=== PATIENT | male | born 1960 | race Caucasian/White ===

== ENCOUNTER 2017-05-21 06:04 | Inpatient (IN) | payer BC, OTHER ==
[2017-04-29 11:15] VITALS: BMI 31.0
--- NOTE | 2017-04-29 11:41 | PAT Medication Instructions ---
Service Date Apr 29, 2017. Current Home Medication List Hydrochlorothiazide (Hctz), 12.5 MG PO QAM Levothyroxine Sodium (Levothyroxine Sodium), 1 TAB PO QAM Losartan Potassium (Cozaar), 100 MG PO QAM Zolpidem Tartrate (Zolpidem Tartrate), 1 TAB PO HS PRN for Insomnia Medication Instructions For Your Scheduled Surgery - Hold the following medications the morning of surgery: Hydrochlorothiazide (Hctz), 12.5 MG PO QAM Losartan Potassium (Cozaar), 100 MG PO QAM - Take the following medications the morning of surgery with a sip of water: Levothyroxine Sodium (Levothyroxine Sodium), 1 TAB PO QAM - Take the following medications as scheduled the night before surgery: Zolpidem Tartrate (Zolpidem Tartrate), 1 TAB PO HS PRN for Insomnia (if needed) If you have any questions please call us at [phone] or [phone] or [phone]
--- NOTE | 2017-04-29 12:23 | DIAGNOSTIC IMAGING REPORT ---
CHEST 2 VIEWS ROUTINE CLINICAL HISTORY: Preoperative chest COMPARISON STUDY: 12/25/2012 FINDINGS: The cardiac and mediastinal contours are normal. There is no evidence of focal pulmonary consolidation. There is no evidence of failure. No pleural effusions are visualized.[ IMPRESSION: No active disease in the chest. Electronically signed by: Maximiliano Muñoz M.D. 04/29/2017 12:22 PM Dictated Date/Time: 04/29/2017 12:22 PM
[2017-04-29 12:53] LABS: BASO % 0.3 %; BASO ABS # 0.03 K/uL (0-0.2); EOS % 2.3 %; EOS ABS # 0.21 K/uL (0-0.5); HEMATOCRIT 41.6 % (42-52); HEMOGLOBIN 14.4 g/dL (14.0-18.0); IG# 0.03 K/uL (0.00-0.02); LYMPH % 31.6 %; LYMPH ABS # 2.86 K/uL (1.2-3.4); MEAN CORPUSCULAR HEMOGLOBIN 29.1 pg (25-34); MEAN CORPUSCULAR HGB CONC 34.6 g/dl (32-36); MEAN PLATELET VOLUME 9.6 fL (7.4-10.4); MONO ABS # 1.09 K/uL (0.11-0.59); NEUT % 53.5 %; NEUT ABS # 4.83 K/uL (1.4-6.5); PLATELET COUNT 245 K/uL (130-400); RED CELL DISTRIBUTION WIDTH SD 39.2 fL (36.4-46.3); WHITE BLOOD COUNT 9.05 K/uL (4.8-10.8)
[2017-04-29 13:06] LABS: PTT PATIENT 25.9 SECONDS (21.0-31.0)
[2017-04-29 13:38] LABS: ALBUMIN 3.8 gm/dl (3.4-5.0); CALCIUM 9.4 mg/dl (8.5-10.1); CREATININE 1.04 mg/dl (0.60-1.40); POTASSIUM 4.4 mmol/L (3.5-5.1)
[2017-04-29 13:39] LABS: HEMOGLOBIN A1C 6.3 % (4.5-5.6)
[2017-05-21] VITALS (10 sets, daily range): BP systolic 110–129; BP diastolic 63–90; PULSE 73–82; TEMP 36.4–36.8; O2SAT 93–96; Ht 182.9 cm; Wt 103.9 kg
[~2017-05-21] VITALS: Ht 182.9 cm; Wt 103.9 kg
[~2017-05-21 06:04] MED LIST: ACETAMINOPHEN 500 MG TAB PO SCH; CEFAZOLIN 2000MG IV PUSH 15 ML IV SCH; CeleBREX 200 MG CAP PO SCH; DEXAMETHASONE 4 MG TAB PO SCH; FAMOTIDINE 20 MG TAB PO SCH; GABAPENTIN 600 MG PO SCH; HYDR25TA4 PO; LACTATED RINGER'S 1000ML 1,000 ML IV SCH; LACTATED RINGER'S 1000ML 500 ML IV SCH; LEVO150T9 PO; LOSA1TAB38 PO; METOCLOPRAMIDE HCL 10 MG TAB PO SCH; ROPIVACAINE 5MG/ML 30 ML 150 MG, BUPIVACAINE 0.5% MPF INJ 30 ML, EpINEphrine HCL INJ 0.... INFIL SCH; ZOLP10TA6 PO
[2017-05-21] MEDS ORDERED: BUPIVACAINE 0.5 % 5 MG/1 ML PF 10ML VIAL ONE (06:31)
[2017-05-21] MEDS ORDERED: BUPIVACAINE 0.25% 30 ML VIAL ONE (06:31)
--- NOTE | 2017-05-21 06:58 | History & Physical Bridge Note ---
H&P Re-Evaluation Bridge Note: I have examined the patient, reviewed the History & Physical and in the interval since the performance of the History & Physical I have noted the following changes of clinical significance: No changes noted
--- NOTE | 2017-05-21 07:01 | History and Physical ---
History & Physical Date May 21, 2017. Chief Complaint Patient presents as a 57-year-old white male with complaints of severe end- stage DJD about his left knee is undergone previous right total knee arthroplasty he has [id number]-[id number] changes subchondral sclerosis osteophytes marginal osteophytes varus alignment of his left knee he is a failed attempt to conservative management with her today to present to proceed forward with left total knee arthroplasty after failing all attempts at conservative management. History of Present Illness The patient is a 57 year old male with complaints of Additional History Hepatic Disease: No Endocrine Disorder: No Kidney Disease: No Hypertension: Yes Heart Disease: No Bleeding Tendencies: No Infectious Diseases: No Allergies Coded Allergies: No Known Allergies (Unverified , 05/21/17) Home Medications Scheduled Hydrochlorothiazide (Hctz), 12.5 MG PO QAM Levothyroxine Sodium (Levothyroxine Sodium), 1 TAB PO QAM Losartan Potassium (Cozaar), 100 MG PO QAM Scheduled PRN Zolpidem Tartrate (Zolpidem Tartrate), 1 TAB PO HS PRN for Insomnia Physical Examination Skin: warm/dry, no rash Eyes: normal inspection, EOMI, sclerae normal ENT: normal ENT inspection, pharynx normal Head: normocephalic, atraumatic Neck: supple, no adenopathy, trachea midline Respiratory/Chest: lungs clear, normal breath sounds, no respiratory distress Cardiovascular: regular rate, rhythm, no edema, no murmur Abdomen / GI: normal bowel sounds, non tender Back: normal inspection Extremities: normal inspection, normal range of motion Neurologic/Psych: no motor/sensory deficits, alert, normal reflexes, oriented x 3 Diagnosis Severe end-stage chronic or mild degenerative joint disease marginal ossified subchondral sclerosis subchondral cystic changes varus alignment no response to conservative therapy Plan of Treatment Plan for total knee arthroplasty postop pain management DVT prophylaxis and boxes necessary
[2017-05-21] MEDS ORDERED: POVIDONE-IODINE OP SOLN 30 ML BTL ONE (07:24)
[2017-05-21] MEDS ORDERED: ORTHO JOINT ANESTHETIC ONE (07:24)
[2017-05-21] MEDS ORDERED: BACITRACIN 50000 UNIT VIAL ONE (07:24)
[2017-05-21] MEDS ORDERED: EpHEDrine SULFATE INJ 50 MG/ML AMP IV PRN (07:30)
[2017-05-21] MEDS ORDERED: ONDANSETRON INJ 2 MG/ML 2 ML VIAL IV PRN ×2 (07:30→10:00)
[2017-05-21] MEDS ORDERED: ATROPINE SULFATE 0.1 MG/ML 5ML SYR IV PRN (07:30)
[2017-05-21] MEDS ORDERED: FENTANYL CITRATE INJ 50 MCG/1 ML 2 ML VIAL IV PRN (07:30)
[2017-05-21] MEDS ORDERED: MIDAZOLAM HCL 1 MG/ML 2ML VIAL ONE (07:40)
[2017-05-21] MEDS ORDERED: FENTANYL CITRATE INJ 50 MCG/1 ML 2 ML VIAL ONE ×2 (07:40→09:08)
[2017-05-21] MEDS: TRANEXAMIC ACID INJ 1,000 MG x 2 Bags IV SCH ×4 (07:49→22:56)
[2017-05-21] MEDS ORDERED: PROPOFOL IV EMULSION 10 MG/ML 20 ML VIAL IV ONE ×2 (08:55→09:23)
[2017-05-21] MEDS ORDERED: ONDANSETRON INJ 2 MG/ML 2 ML VIAL ONE (08:56)
[2017-05-21] MEDS ORDERED: GLYCOPYRROLATE INJ 0.2 MG/ML VIAL ONE (08:56)
[2017-05-21] MEDS ORDERED: EpHEDrine SULFATE 50MG/5ML SYR ONE (08:56)
[2017-05-21] MEDS ORDERED: PHENYLEPHRINE 100MCG/ML 5ML SYR ONE (08:56)
--- NOTE | 2017-05-21 09:26 | [facility] Post Operative Brief Note ---
Immediate Operative Summary Operative Date May 21, 2017. Pre-Operative Diagnosis Severe end-stage chronic or mild degenerative joint disease marginal ossified subchondral sclerosis subchondral cystic changes varus alignment no response to conservative therapy Post-Operative Diagnosis Same Procedure(s) Performed Left Total Knee Arthroplasty utilizing [employer] journey to patient match size 6 femur 6 tibia 9 probably [address] Greg Reid Business Services Analyst Surgeon(s) Juan Humphrey PA-C Estimated Blood Loss 5mL Findings Consistent with Post-Op Diagnosis Specimens Permanent: A. Left Knee Bone and Tissue Anesthesia Type MAC Spinal Regional Complication(s) none Disposition Disposition: Recovery Room / PACU
--- NOTE | 2017-05-21 09:28 | [facility] Operative Report ---
Operative Report Operative Date May 21, 2017. Pre-Operative Diagnosis Severe end-stage chronic or mild degenerative joint disease marginal ossified subchondral sclerosis subchondral cystic changes varus alignment no response to conservative therapy Post-Operative Diagnosis Same Procedure(s) Performed Left Total Knee Arthroplasty utilizing [employer] journey to patient match size 6 femur 6 tibia 9 probably [address] Greg Reid Software Computer Specialist Surgeon(s) Juan Humphrey PA-C Estimated Blood Loss 5mL Findings Severe end-stage tricompartmental degenerative joint disease no response to conservative therapy including physical therapy anti-inflammatories relative rest activity modification Visco supplementation corticosteroid injections patient has x-ray findings consistent with subchondral sclerosis marginal osteophytes and subchondral cystic changes with varus alignment on the bone changes Specimens Permanent: A. Left Knee Bone and Tissue Anesthesia Type MAC Spinal Regional Complication(s) none Disposition Recovery Room / PACU Indications Patient presents with severe end-stage drug or mild degenerative joint disease with knee is been no response to conservative management and physical therapy was consolidations course of steroid injections bracing rest activity modification patient presents for total neuroplasty time surgery patient has evidence of varus alignment [id number]-[id number] changes subchondral cystic changes large marginal osteophytes and bodies subchondral cystic changes and sclerosis Description of Procedure After proper prepping and draping of the left lower extremity anterior midline incision was made over the region of the extensor extensor mechanism after meticulous hemostasis was obtained and maintained in subcutaneous tissues a medial parapatellar incision was made The patella was subluxed lateralward the medial lateral gutter were cleaned from any hypertrophic synovitis and scar tissue of the distal femoral block was placed and the distal femoral osteotomy cut was made subsequently the chamfers anterior and posterior osteotomy cuts were made utilizing the 4-in-1 block the tibia was subsequently subluxed anteriorward medial and ateral meniscal remnants were excised in their entirety remnants of the anterior and posterior cruciate ligaments were excised in their entirety excellent exposure of the proximal tibia was obtained the tibial osteotomy guide was placed on the proximal tibial osteotomy cut was made once again the knee was irrigated with copious amounts of sterile saline solution the patella was subsequently everted lateralward thickened scar tissue around the patella was removed the patella was subsequently cut utilizing a freehand technique and was drilled prepared for final preparation and placement of patella socially flexion-extension gaps were checked and the equal and symmetric trials were placed to the appropriate femoral and tibial trials with poly-spacer being placed for equal flexion and extension gaps and full range of motion including extension to 0 and flexion to 140 the trial components after having been taken to recovery range of motion was subsequently removed meticulous hemostasis was obtained and maintained subsequently a knee block injection of joint cocktail including ropivacaine 0.5% 150 mg. Bupivacaine 0.5 % epinephrine 1-200,030 mL's toradol 30 mg dexamethasone 4 mg ketamine 10 mg clonidine 100 micrograms normal saline solution 30 mg was infiltrated into the soft tissues of the posterior knee medial lateral gutters and periosteal synovium special attention was paid to protect neurovascular structures at all times subsequently trial components having been removed the knee was irrigated with sterile saline solution. debris was removed the proximal tibia was subsequently prepared and was made ready for the placement of the tibial component tibial component was also cemented and tamped into position the femoral component was subsequently placed and cemented in the position the patellar component was subsequently cemented in position because hemostasis once again obtained and maintained wound having been thoroughly irrigated with debridement and debridement lavage was performed as well as a medial parapatellar incision closed with #1 Vicryl in interrupted fashion subcutaneous was closed with #2 Vicryl skin was closed with skin clips. PA-C was necessary for prepping and drapping as well as wound closure of deep fascia Sub cutaneous tissue and skin and was necessary for the case. A sterile compressive dressing was placed patient was taken to recovery in stable condition of report dictated by Franklin I attest to the content of the Intraoperative Record and any orders documented therein. Any exceptions are noted below. I attest to the content of the Intraoperative Record and any orders documented therein. Any exceptions are noted below.
[2017-05-21] MEDS ORDERED: ALUMINUM/MAGNESIUM/SIMETH (MAALOX MAX) 30 ML UDC PO PRN (10:00)
[2017-05-21] MEDS ORDERED: MoRPHine SULFATE 4 MG/ML 1 ML CARP\\VIAL IV PRN (10:00)
[2017-05-21] MEDS ORDERED: MAGNESIUM HYDROXIDE SUSP 30 ML UDC PO PRN (10:00)
--- NOTE | 2017-05-21 10:18 | DIAGNOSTIC IMAGING REPORT ---
L KNEE 1 OR 2 VIEWS ROUTINE CLINICAL HISTORY: AP/LATERAL IN PACU LEFT KNEE knee replacement COMPARISON: None. DISCUSSION: Anatomic alignment posttotal left knee arthroplasty. Good contact between prosthetic and underlying bone. Surgical drains are in position. Expected postoperative soft tissue change. IMPRESSION: Anatomic alignment posttotal left knee arthroplasty. The above report was generated using voice recognition software. It may contain grammatical, syntax or spelling errors. Electronically signed by: Eulogio Moura M.D. 05/21/2017 10:17 AM Dictated Date/Time: 05/21/2017 10:15 AM
--- NOTE | 2017-05-21 10:32 | Anesthesiology Progress Note ---
Anesthesia Post Op Note Date & Time May 21, 2017 at 10:32 Vital Signs Pain Intensity: 0 Vital Signs Past 12 Hours Date Time Temp Pulse Resp B/P (MAP) Pulse Ox O2 Delivery O2 Flow Rate FiO2 05/21/17 10:20 36.6 92 19 129/83 94 Nasal Cannula 2 05/21/17 10:10 90 15 111/78 95 Nasal Cannula 2 05/21/17 10:00 94 18 134/69 100 Oxymask 10 05/21/17 09:54 37.5 108 16 112/64 96 Oxymask 10 05/21/17 06:37 36.7 82 20 129/90 94 Room Air Notes Mental Status: alert / awake / arousable, participated in evaluation Pt Amnestic to Procedure: Yes Nausea / Vomiting: adequately controlled Pain: adequately controlled Airway Patency, RR, SpO2: stable & adequate BP & HR: stable & adequate Hydration State: stable & adequate Neuraxial Anesthesia: was administered, sensory block is resolving Anesthetic Complications: no major complications apparent
[2017-05-21] MEDS: D5W AND 1/2NSS + 20MEQ KCL 1,000 ML IV SCH ×2 (12:12→23:36)
[2017-05-21] MEDS: ACETAMINOPHEN 500 MG TAB PO SCH ×2 (13:44→21:26)
[2017-05-21] MEDS: CEFAZOLIN IV 2,000 MG in SYRINGE 0 ML IV SCH ×2 (15:49→23:35)
[2017-05-21] MEDS: OXYCODONE HCL IR 5 MG TAB (IMMEDIATE RELEASE) PO PRN ×2 (15:58→21:25)
[2017-05-21] MEDS ORDERED: SENNA 8.6 MG TAB PO SCH (21:00)
[2017-05-21] MEDS: CeleBREX 200 MG CAP PO SCH (21:26)
[2017-05-21] MEDS: ASPIRIN 81 MG ECTAB PO SCH (21:26)
[2017-05-21] MEDS: DOCUSATE SODIUM 100 MG CAP PO SCH (21:26)
[2017-05-21] MEDS: TRAMADOL HCL 50 MG TAB PO PRN (23:35)
[2017-05-22 02:55] VITALS: BP 116/64; PULSE 79; TEMP 36.9; O2SAT 96
[2017-05-22] MEDS: OXYCODONE HCL IR 5 MG TAB (IMMEDIATE RELEASE) PO PRN ×3 (03:00→13:37)
[2017-05-22 05:58] LABS: HEMATOCRIT 35.8 % (42-52); MEAN CORPUSCULAR HEMOGLOBIN 28.5 pg (25-34); MEAN CORPUSCULAR HGB CONC 33.5 g/dl (32-36); MEAN PLATELET VOLUME 9.5 fL (7.4-10.4); PLATELET COUNT 242 K/uL (130-400); RED CELL DISTRIBUTION WIDTH CV 13.2 % (11.5-14.5); RED CELL DISTRIBUTION WIDTH SD 40.8 fL (36.4-46.3); WHITE BLOOD COUNT 26.96 K/uL (4.8-10.8)
[2017-05-22] MEDS: ACETAMINOPHEN 500 MG TAB PO SCH ×2 (05:58→13:37)
[2017-05-22] MEDS: TRAMADOL HCL 50 MG TAB PO PRN (05:58)
[2017-05-22] MEDS ORDERED: LEVOTHYROXINE 150 MCG TAB PO SCH (06:00)
[2017-05-22 06:24] LABS: CALCIUM 8.2 mg/dl (8.5-10.1); CREATININE 1.1 mg/dl (0.60-1.40); POTASSIUM 4.3 mmol/L (3.5-5.1)
[2017-05-22] MEDS: D5W AND 1/2NSS + 20MEQ KCL 1,000 ML IV SCH (07:15)
[2017-05-22 07:41] VITALS: BP 128/75; PULSE 62; TEMP 36.8; O2SAT 95
--- NOTE | 2017-05-22 08:04 | Orthopedic Progress Note ---
Orthopedic Progress Note Date of Service May 22, 2017. Subjective Post OP Day: 1 Reports: feeling well, pain controlled w PO medications, Denies: complaints, chest pain, SOB, nausea / vomiting, light headedness, calf pain Objective calves soft nontender, N/V intact, capillary refill less than 2 sec., dressing C /D/I, A&O x3, toes mobile, hemovac drainage (300cc/8 hours) Date Time Temp Pulse Resp B/P (MAP) Pulse Ox O2 Delivery O2 Flow Rate FiO2 05/22/17 02:55 36.9 79 16 116/64 (81) 96 Room Air 05/21/17 23:58 36.8 75 16 115/68 (84) 96 Room Air 05/21/17 23:40 Room Air 05/21/17 15:47 36.4 74 18 113/63 (80) 94 Room Air 05/21/17 15:30 94 Room Air 05/21/17 13:38 73 16 117/72 (87) 94 Nasal Cannula 2.0 05/21/17 12:40 36.4 74 16 117/72 (87) 95 Nasal Cannula 2.0 05/21/17 11:48 73 19 110/69 (83) 96 Nasal Cannula 2.0 05/21/17 11:10 36.4 73 16 116/73 (87) 93 Nasal Cannula 2.0 05/21/17 10:59 96 Nasal Cannula 2.0 05/21/17 10:40 36.8 76 16 118/73 (88) 96 Nasal Cannula 2.0 05/21/17 10:40 96 Nasal Cannula 2.0 05/21/17 10:20 36.6 92 19 129/83 94 Nasal Cannula 2 05/21/17 10:10 90 15 111/78 95 Nasal Cannula 2 05/21/17 10:00 94 18 134/69 100 Oxymask 10 05/21/17 09:54 37.5 108 16 112/64 96 Oxymask 10 Laboratory Results 24 Hours: Test 05/22/17 05:49 Hematocrit 35.8 % Hemoglobin 12.0 g/dL Assessment & Plan Assessment: POD #1 s/p left TKA pt/ot dvt proph with naldo/scd/asa plan for dc home later today, will check drain output, will either pull today or arrange appt in [place] office tomorrow to have drain pulled. Discharge Planning Discharge Planning: home with oppt DVT Prophylaxis: TEDs, SCDs, ASA
[2017-05-22] MEDS ORDERED: ASPEC81 PO (08:05)
[2017-05-22] MEDS ORDERED: ACET-24 PO (08:05)
[2017-05-22] MEDS ORDERED: ONDA-170 PO (08:06)
[2017-05-22] MEDS ORDERED: CLC100 PO (08:06)
[2017-05-22] MEDS ORDERED: CLB200 PO (08:06)
[2017-05-22] MEDS ORDERED: RXC5 PO (08:06)
--- NOTE | 2017-05-22 08:07 | Discharge Instructions ---
Discharge Instructions Date of Service May 22, 2017. Admission Reason for Admission: Left Knee Osteoarthritis Discharge Discharge Diagnosis / Problem: left total knee replacement Discharge Goals Goal(s): Decrease discomfort, Improve function, Increase independence Activity Recommendations Activity Limitations: as noted below Weightbearing Status: Left weightbearing (as tolerated) . Instructions / Follow-Up Instructions / Follow-Up ACTIVITY RECOMMENDATIONS: SELF CARE INSTRUCTIONS AFTER TOTAL KNEE REPLACEMENT A. You may need to continue a physical therapy program after discharge from the hospital. There are several options available to you. Your doctor will assist you in selecting the best one for you. 1. An out-patient facility 2 to 3 times a week for therapy or home therapy. 2. Continue working on all exercises taught to you in the hospital. Your goals should be to increase bending of your knee to 90 degrees and beyond and to fully straighten your knee. B. You may progress at your own pace from walking with a walker or crutches to a cane; then to no assistive devices. C. Make walking a part of your daily routine. Be up as much as comfortable with rest periods throughout the day. Rest with leg elevation is very important. Use the ice wrap frequently for the first 3-4 weeks. D. There are no restrictions on activities. You may ride in a car, shop, participate in planing machine operator and all social activities. E. Wear the long elastic stockings (WILFRED hose) 20 hours a day for 2 weeks after surgery. They can be removed several times a day for laundering and for a bath. F. You may shower, no tub baths until cleared by your doctor. SPECIAL CARE INSTRUCTIONS: VERY IMPORTANT TO READ AND REVIEW A. There are a few signs you need to watch for after you are home. Call [facility] if you notice any of the followin. Increased severe knee pain. Some pain is expected especially when you exercise. 2. Increased swelling in your leg or knee; pain or swelling of the calf muscle in either lower leg. 3. Any fluid drainage from the incision. 4. Shortness of breath or chest pain. B. Please call [facility] at if you have any concerns or questions about your operation or recovery. The doctor or his nurse will return your call promptly. C. You must take antibiotics before dental work, bladder, bowel or other surgery. Your doctor will provide you with a permanent care to carry describing this precaution. IMPORTANT: * REMEMBER TO TAKE ASPIRIN, 81 MG, TWICE DAILY FOR 4 WEEKS UNLESS OTHERWISE DIRECTED. THIS IS YOUR BLOOD THINNER. * HIGH RISK PATIENTS MAY BE PRESCRIBED A STRONGER BLOOD THINNER. THIS WILL BE PROVIDED AT DISCHARGE. * CALL IF INCREASED PAIN, REDNESS, DRAINAGE OR FEVER GREATER THAT 101. * WEAR WILFRED HOSE 20 HOURS PER DAY FOR 2 WEEKS. * YOU MAY HAVE A LARGE BAND-AID LIKE DRESSING (SILVERON). THIS WILL REMAIN ON YOUR INCISION FOR 7 DAYS, THEN CAN BE REMOVED. IF INCISION IS LEAKING THROUGH DRESSING, CALL THE OFFICE . DERMABOND Prineo- This is a mesh tape dressing that is covered with glue. It should remain in place until the incision is properly healed, usually 10-14 days. This dressing is designed to naturally slough off. You may trim the excess mesh tape as it peels off. Incision may be briefly wet in a shower. Dry immediately by blotting with a clean, dry towel. Do not bath or swim until instructed by your doctor. Do not scratch, rub, or pick at the dressing. Do not apply any topical ointments or lotions until dressing is completely removed and/or instructed by your doctor. There may be a small piece of suture material at one end of your incision. Do not pull or trim this. If it is bothersome or catching on clothing, you may cover it with a band-aid. FOLLOW UP VISIT: If appointment is not already scheduled: Please call [facility] to make a follow-up appointment for 2 weeks after your surgery at . Current Hospital Diet Patient's current hospital diet: Regular Diet Discharge Diet Recommended Diet: Regular Diet Procedures Procedures Performed: Left Total Knee Arthroplasty utilizing [employer] journey to patient match size 6 femur 6 tibia 9 probably 38 oval patella Pending Studies Studies pending at discharge: no Laboratory Results Hemoglobin A1c Test 04/29/17 11:56 Range/Units Estimated Average Glucose 134 mg/dl Hemoglobin A1c 6.3 H 4.5-5.6 % Medical Emergencies . Who to Call and When: Medical Emergencies: If at any time you feel your situation is an emergency, please call 911 immediately. . Non-Emergent Contact Non-Emergency issues call your: Primary Care Provider, Surgeon . "Provider Documentation" section prepared by Eulogio Meyer. . [facility] Monitoring Program Search Results: patient reviewed within database, no issues identified
[2017-05-22] MEDS ORDERED: LOSARTAN POTASSIUM 50 MG TAB PO SCH (09:00)
[2017-05-22] MEDS ORDERED: MULTIVITAMIN TAB PO SCH (09:00)
[2017-05-22] MEDS: DOCUSATE SODIUM 100 MG CAP PO SCH (09:07)
[2017-05-22] MEDS: CeleBREX 200 MG CAP PO SCH (09:07)
[2017-05-22] MEDS: ASPIRIN 81 MG ECTAB PO SCH (09:07)
[2017-05-22 10:39] VITALS: BP 128/75; PULSE 62; TEMP 36.8; O2SAT 95
--- NOTE | 2017-05-23 14:45 | DISCHARGE SUMMARY ---
DISCHARGE DIAGNOSIS: Degenerative joint disease, left knee. SECONDARY DIAGNOSES: Hypertension, hypothyroidism. CONSULTS: None. COMPLICATIONS: None. PROCEDURE: Left total knee arthroplasty performed by Dr. Reid on 05/21/2017. BRIEF HISTORY: As dictated in history and physical. HOSPITAL SUMMARY: The patient was admitted on the above-noted date and had the above-noted surgery performed, which he tolerated well. On first postoperative day, he was feeling well and pain was controlled. He had no complaints. Calves were soft, nontender. Neurovascularly intact. Capillary refill was less than 2 seconds. Dressings clean, dry and intact. Toes were mobile. Vital signs were stable. He was afebrile and hemoglobin was 12.0. The patient was started on physical therapy protocol and continued on DVT prophylaxis and pain management. He was progressing very well with his physical therapy. He continued to remain stable with his vital signs and plans were for him to be discharged to home on 05/22/2017. If drain remains in, patient will be scheduled to see someone on 05/23/2017 at the office in [place] to have the drain removed. For further review, please see chart. LABORATORY AND X-RAY DATA: As per chart. DISCHARGE INSTRUCTIONS: The patient was discharged home in satisfactory condition on 05/22/2017. DIET: Regular. ACTIVITY: Weightbearing as tolerated, left lower extremity. Follow TKA instruction sheets and special care instructions as noted. Follow up with Dr. Reid in 10-14 days. The patient to call for appointment if one has not been made for you. DISCHARGE MEDICATIONS: Acetaminophen 1000 mg p.o. q. 8 hours, aspirin 81 mg p.o. b.i.d., Celebrex 200 mg p.o. b.i.d., Colace 100 mg p.o. b.i.d., Zofran 8 mg p.o. q. 8 hours p.r.n. nausea, oxycodone 5-10 mg p.o. q. 4 hours p.r.n. Resume home meds as listed.
== END 2017-05-22 14:10 | disposition home or self-care (01) | DRG 470 ==
LOC: C.ACU 06:04 → C.3E 06:40 → ENRESERV 10:17
PROVIDERS: ADMIT Orthopaedic Surgery; ATTEND Orthopaedic Surgery
PROC: 0SRD0J9 Replacement of Left Knee Joint with Synthetic Substitute, Cemented, Open Approach (ICD-10-PCS; principal; 2017-05-21 08:15)
DX: M17.12 Unilateral primary osteoarthritis, left knee (principal); I10 Essential (primary) hypertension; E03.9 Hypothyroidism, unspecified; Z79.899 Other long term (current) drug therapy; Z96.651 Presence of right artificial knee joint; Z85.46 Personal history of malignant neoplasm of prostate; Z90.79 Acquired absence of other genital organ(s); Z98.890 Other specified postprocedural states

== ENCOUNTER 2021-07-08 17:49 | Inpatient (IN) ==
--- NOTE | 2021-07-08 18:17 | Emergency Department Note ---
History of Present Illness General Chief complaint: Back Injury/Pain Stated complaint: BACK PAIN IS WORSE SINCE LAST VISIT Time Seen by Provider: 07/08/21 18:03 Source: patient History of Present Illness Provider complaint: Back pain Onset (ago): week(s) Location: back and right Radiation: extremity Pain Consistency: + intermittent Maximum Pain Intensity: 8 Quality: + sharp Exacerbated By: + movement Associated symptoms: no chest pain, no cough, no fever/chills, no nausea/vomiting, no shortness of breath or no weakness This is a 61-year-old male with recently diagnosed lumbar radiculopathy presenting with continued pain to his back rating down his right leg. He de scribes it as sharp. He states he feels fine when he sitting on the bed but if he tries to move around it hurts quite a bit. He states the pain has not improved with the medications that he was given such as prednisone and are oxycodone. He does have some mild relief with hydrocodone. He has had his pain for over a week after playing golf. He also noticed at that time that he has had numbness to the top of his right foot which has not changed at all. He describes it as a pins and needle sensation like the foot is asleep. He has had no fecal urinary incontinence. He denies any saddle anesthesia. He denies any recent injury. He denies fever, cough or cold symptoms, chest pain, shortness of breath, abdominal pain, vomiting, diarrhea or urinary symptoms. He states that he was told by Dr. Cancino that if his symptoms did not improve he should come to the emergency department and the staff would get a hold of Dr. Cancino. Home Medications Medication Instructions Recorded Confirmed Type baclofen 10 mg tablet 10 mg PO TID PRN 07/04/21 07/04/21 History carvedilol 3.125 mg tablet 3.125 mg PO BID 07/04/21 07/04/21 History evolocumab 140 mg/mL subcutaneous 140 mg SUBCUT MONTHLY 07/04/21 07/04/21 History pen injector (Vladislav Wright) gabapentin 300 mg capsule 300 mg PO BID #20 cap 07/04/21 Rx irbesartan 300 1 tab PO DAILY 07/04/21 07/04/21 History mg-hydrochlorothiazide 12.5 mg tablet levothyroxine 200 mcg tablet 200 mcg PO QAM 07/04/21 07/04/21 History oxycodone 5 mg tablet 5 mg PO Q8H PRN #14 tab 07/04/21 Rx prednisone 20 mg tablet 0 mg PO DAILY 07/04/21 07/04/21 History zolpidem 10 mg tablet 10 mg PO HS 07/04/21 07/04/21 History Allergies Allergy/AdvReac Type Severity Reaction Status Date / Time No Known Allergies Allergy Verified 07/04/21 16:09 Past Med/Surg History Medical History (Updated 07/08/21 @ 18:39 by Greg George MD) Hypertension Hypothyroidism Lumbar radiculopathy Social History Smoking Status: Never smoker Preferred Language: [place] Feels Safe at Home: Yes Review of Systems See HPI for pertinent positives & negatives. and A total of 10 systems reviewed and were otherwise negative Physical Exam Vital Signs Vital Signs - 24 hr 07/08/21 17:51 07/08/21 18:30 Temperature 36.1 C L Temperature Source Temporal Artery Scan Pulse Rate 67 Pulse Rate [Left Radial] 59 L Pulse Rhythm [Left Radial] Regular Respiratory Rate 16 20 Respiratory Effort / Characteristics Non-Labored Non-Labored Respiratory Depth Normal Normal Blood Pressure [Left Radial Artery] 142/81 H Blood Pressure Mean [Left Radial Artery] 101 Blood Pressure Position [Left Radial Artery] Lying Pulse Oximetry 97 98 Oxygen Delivery Method Room Air Room Air Sepsis Recent Fever Within 48 Hours No Sepsis New/Unexplained Change in Mental Status No Sepsis Action Taken by Nursing No Action Required Constitutional: Vital signs reviewed. Eyes: Pupils are equal round reactive to light. Conjunctiva are noninjected. ENT: Pharynx is clear without erythema or exudate. Mucous membranes are moist. Neck supple without meningeal signs. Respiratory: Clear to auscultation bilaterally. Breath sounds are equal bilaterally. Cardiovascular: Regular rate and rhythm. No rubs or gallops. GI: Soft, nondistended and nontender. Bowel sounds are present. Musculoskeletal: No peripheral edema. No lower extremity tenderness. Mild midline tenderness to lower lumbar spine without step-off or deformity. Negative straight leg raise bilaterally. Normal distal pulses in the feet. Integumentary: No cyanosis. or jaundice. Neurological: The patient is awake and alert. Motor is intact throughout the lower extremities bilaterally with 5 out of 5 strength except for dorsiflexion of the right foot which is 4 out of 5. Sensation is intact to light touch throughout the lower extremities bilaterally with dysesthesia to the lateral aspect of the lower leg and dorsum of the foot. Psychiatric: Normal affect. Not anxious appearing. Medical Decision Making Medical Records Attestation: I reviewed the patient's medical records. I did perform a limited focused review of portions of the patient's old chart on the electronic medical record. The patient was seen here for identical symptoms on July 04 and had an MRI of his back which showed the following: MRI OF THE LUMBAR SPINE WITHOUT IV CONTRAST CLINICAL HISTORY: Low back pain. Difficulty with ambulation. COMPARISON STUDY: No priors. TECHNIQUE: MRI of the lumbar spine is performed utilizing various T1 and T2-weighted sequences in the axial and sagittal planes. IV contrast was not administered for this examination. The examination is modestly degraded by motion artifact. FINDINGS: Lumbar spine: Vertebral body height and alignment are maintained throughout the lumbar spine. There is straightening of the lumbar lordosis. Anterior and lateral marginal osteophytes are seen throughout. The transverse and spinous processes appear intact. There is no evidence of spondylolysis. Hemangiomas are noted in the bodies of L3 and L4. No destructive bony lesion is seen. Mild chronic degenerative endplate change and endplate edema are noted at L3-L4. Intervertebral discs: Degenerative disc desiccation and loss of height are seen in the mid to lower lumbar region. Paraspinal cord: The visualized spinal cord is normal in morphology and signal intensity. The conus medullaris terminates at the level of L2. The nerve roots of the cauda equina are normal in morphology. These are tethered at L3-L4. L1-L2: Unremarkable. L2-L3: There is broad-based posterior disc bulge eccentric to the left. This abuts the transiting nerve roots. There is no significant acquired compromise of the central canal. There is bilateral subarticular stenosis, left greater than right. This may abut the exiting left L2 nerve root. There is minimal bilateral neural foraminal narrowing. L3-L4: There is broad-based posterior disc bulge with annular fissure. In conjunction with hypertrophy of the ligamentum flavum, there is severe central canal stenosis at this level with a minimum AP diameter of 4 mm. Lateral disc bulge contributes to bilateral subarticular stenosis. This abuts the exiting bilateral L3 nerve roots. There is only mild bilateral neural foraminal narrowing. L4-L5: There is a small posterior disc osteophyte complex. This abuts the transiting nerve roots. There is only minimal acquired compromise of the central canal. The minimum AP diameter measures 8 mm. Lateral disc bulge is seen bilaterally and contributes to subarticular stenosis. This may impinge on the exiting left L4 nerve root. In conjunction with facet arthropathy, there is severe left and moderate to severe right neural foraminal stenosis. L5-S1: There is broad-based posterior disc bulge. No significant acquired compromise of the central canal is identified. There is right lateral disc bulge/disc extrusion. This contributes to severe right-sided subarticular and neural foraminal stenosis with impingement on the exiting right L5 nerve root. There is milder left-sided subarticular stenosis. This may also abut the exiting left L5 nerve root. Moderate to severe left-sided neural foraminal narrowing is noted. Sacrum: The visualized sacrum is normal in morphology and signal intensity. Soft tissues: There is edema within the paraspinous musculature, right greater than left. The retroperitoneal structures are grossly unremarkable but incompletely evaluated. IMPRESSION: 1. Multilevel lumbosacral spondylosis as above with severe central canal stenosis at L3-L4. See discussion for detailed level by level analysis. 2. No destructive bony process is identified. 3. There is significant and nonspecific edema within the paraspinous m usculature, right much greater than left. He was discharged with gabapentin and oxycodone. Home Medications Current Medication List: was personally reviewed by me MDM Narrative I did evaluate the patient as noted above. He is presenting with low back pain rating down his right leg with neurologic symptoms including foot drop and numbness to his foot. His pain is managed right now. He has no new complaints and did not injure himself. I did discuss the case with Dr. Cancino who stated he would hospitalize the patient for surgical repair. Further orders will be as per Dr. Cancino. I did discuss the case with the case managers. Impression & Plan Foot drop, right, Lumbar radiculopathy, Numbness of right foot Discharge Plan Visit Data Chief Complaint: Back Injury/Pain Stated Complaint: BACK PAIN IS WORSE SINCE LAST VISIT ED Provider: Greg George Discharge Problem: Foot drop, right, Lumbar radiculopathy, Numbness of right foot Patient Disposition: Being Evaluated by Surgeon Forms Stand Alone Forms: [facility] Prescriptions Prescriptions: No Action prednisone 20 mg tablet 0 mg PO DAILY RF: 0 carvedilol 3.125 mg tablet 3.125 mg PO BID RF: 0 baclofen 10 mg tablet 10 mg PO TID PRN (Reason: MUSCLE SPASMS) RF: 0 irbesartan-hydrochlorothiazide 300-12.5 mg tablet 1 tab PO DAILY RF: 0 levothyroxine 200 mcg tablet 200 mcg PO QAM RF: 0 zolpidem 10 mg tablet 10 mg PO HS RF: 0 Repatha SureClick 140 mg/mL pen injector 140 mg SUBCUT MONTHLY RF: 0 gabapentin 300 mg capsule 300 mg PO BID Qty: 20 RF: 0 oxycodone 5 mg tablet 5 mg PO Q8H PRN (Reason: pain) Qty: 14 RF: 0 Referrals Referrals: Moreno Irwin MD [Primary Care Provider] -
[2021-07-08] MEDS ORDERED: ACETAMINOPHEN 500 MG TAB PO PRN (20:18)
[2021-07-08] MEDS ORDERED: LORazepam 0.5 MG TAB PO PRN (20:18)
[2021-07-08] MEDS ORDERED: ONDANSETRON 4 MG OD TAB PO PRN (20:18)
[2021-07-08] MEDS ORDERED: LORazepam 2 MG/1 ML VIAL IV PRN (20:18)
[2021-07-08] MEDS ORDERED: oxyCODONE HCL IR 5 MG TAB (IMMEDIATE RELEASE) PO PRN (20:18)
[2021-07-08] MEDS ORDERED: ONDANSETRON INJ 2 MG/ML 2 ML VIAL IV PRN (20:18)
[2021-07-08] MEDS ORDERED: METOCLOPRAMIDE HCL INJ 5 MG/ML 2 ML VIAL IV PRN (20:18)
[2021-07-08] MEDS ORDERED: HYDROmorphone INJ 1 MG/ML SYRINGE IV PRN (20:18)
[2021-07-08] MEDS ORDERED: MAGNESIUM HYDROXIDE SUSP 30 ML UDC PO PRN (20:18)
[2021-07-08] MEDS ORDERED: ACETAMINOPHEN 1,000 MG/100 ML VIAL IV PRN (20:18)
[2021-07-08] MEDS ORDERED: NALOXONE HCL 0.4 MG/1 ML VIAL/CARP IV PRN (20:18)
[2021-07-08] MEDS ORDERED: PROMETHAZINE HCL 12.5 MG in SODIUM CHLORIDE 0.9% 50 ML IV PRN (20:18)
[2021-07-08 21:02] LABS: Basophils # (auto) 0.02 K/uL (0-0.2); Basophils % (auto) 0.2 %; Eosinophils # (auto) 0.28 K/uL (0-0.5); Eosinophils % (auto) 3.1 %; Hematocrit (blood only) 44.6 % (42-52); Hemoglobin 14.8 g/dL (14.0-18.0); Immature Granulocytes # (auto) 0.06 K/uL (0.00-0.02); Immature Granulocytes % (auto) 0.7 %; Lymphocytes # (auto) 3.24 K/uL (1.2-3.4); Lymphocytes % (auto) 35.7 %; Mean Corpuscular Hemoglobin 28.8 pg (25-34); Mean Corpuscular Hgb Conc 33.2 g/dL (32-36); Mean Corpuscular Volume 86.9 fL (80-100); Mean Platelet Volume 9.7 fL (7.4-10.4); Monocytes # (auto) 0.93 K/uL (0.11-0.59); Monocytes % (auto) 10.2 %; Neutrophils # (auto) 4.55 K/uL (1.4-6.5); Neutrophils % (auto) 50.1 %; Platelet Count 234 K/uL (130-400); RDW Coefficient of Variation 13.6 % (11.5-14.5); Red Blood Count 5.13 M/uL (4.7-6.1); White Blood Count 9.08 K/uL (4.8-10.8)
[2021-07-08 21:24] LABS: Albumin Globulin Ratio 1.3 (0.9-2); Albumin Level 3.6 gm/dl (3.4-5.0); BUN Creatinine Ratio 12.8 (10-20); Bilirubin,Total 0.5 mg/dl (0.2-1.0); Calcium 8.9 mg/dl (8.5-10.1); Creatinine Clr Calc Pharmacy 77.2 ml/min; Est GFR (African American) 72.1 ml/min; Est GFR (Non-African American) 62.2 ml/min; Globulin 2.7 gm/dl (2.5-4.0); Potassium 4.5 mmol/L (3.5-5.1); Total Protein 6.3 gm/dl (6.0-8.3)
--- NOTE | 2021-07-08 21:30 | Hospitalist Consultation ---
Date of Consultation July 08, 2021 Assessment & Plan (1) Lumbar radiculopathy: Final Assessment and Recommendations as follows : Lumbar radiculopathy Intractable symptoms discomfort Surgery contemplated tomorrow hypertension, stable hypothyroidism, on thyroid replacement Rx prostate cancer status post surgery/radiation, currently in remission as per patient Management of lumbar radiculopathy as per Orthopedics spine service. Hold home diuretic while patient n.p.o. Hold parameters for neuropsychotropic meds for sedation confusion. DVT prophylaxis. SCDs as per Orthopedics admission orders. Thank you very much for this consultation. Dr. Bell will follow patient's progress. Text document was generated using [email or web address] voice recognition software. It may contain grammatical or spelling errors. Kindly contact undersigned for clarification of any documentation item in question. History of Present Illness Reason for Consultation: Medical management Requesting Physician: Dr. Cancino Attending Physician: Tonio Cancino DO History of Present Illness PCP : Dr. Chavez from [place] History obtained from patient and records. Medical history significant for hypertension, hypothyroidism, prostate cancer [facility] post surgery/radiation. Last confinement under Orthopedics service for elective left total knee arthroplasty. 3 weeks ago, patient noted right low back pain with radiation to the right lower extremity with some numbness and weakness. No recollection of trauma. Patient thinks it might have been from playing golf. No incontinence symptoms, no fever, no chills. Pain worse with ambulation. Patient saw Orthopedic family support specialist outpatient 2 weeks ago. Conservative management recommended for patient complaints. Outpatient prednisone course prescribed. Outpatient steroid injection contemplated August 2021. Worsening discomfort despite prednisone prescription. Patient seen at the ER 3 days ago. M RI done showed 1. Multilevel lumbosacral spondylosis as above with severe central canal stenosis at L3-L4. See discussion for detailed level by level analysis. 2. No destructive bony process is identified. 3. There is significant and nonspecific edema within the paraspinous musc ulature, right much greater than left. Patient discharged on gabapentin and oxycodone medications. Outpatient follow-up with Orthopedics spine scheduled. Surgery recommended by orthopedic family support specialist on follow-up evaluation at the office 2 days ago. Patient instructed to proceed to ER with worsening symptoms. Patient consulted ER today for worsening symptoms. Patient currently admitted under Orthopedics spine service. Medical History as above Surgical History : Urologic procedures, left knee surgery Family History : Hypertension Personal/Social history : Non-smoker, occasional EtOH intake, abstractor Allergies Allergy/AdvReac Type Severity Reaction Status Date / Time No Known Allergies Allergy Verified 07/08/21 19:14 Home Medications Medication Instructions Recorded Confirmed Type carvedilol 3.125 mg tablet 3.125 mg PO BID 07/04/21 07/08/21 History evolocumab 140 mg/mL subcutaneous 140 mg SUBCUT MONTHLY 07/04/21 07/08/21 History pen injector (Vladislav Wright) irbesartan 300 1 tab PO DAILY 07/04/21 07/08/21 History mg-hydrochlorothiazide 12.5 mg tablet levothyroxine 200 mcg tablet 200 mcg PO QAM 07/04/21 07/08/21 History zolpidem 10 mg tablet 10 mg PO HS 07/04/21 07/08/21 History gabapentin 300 mg capsule 300 mg PO BID PRN 07/08/21 07/08/21 History hydrocodone 5 mg-acetaminophen 325 1 tab PO Q6 PRN 07/08/21 07/08/21 History mg tablet Patient History Medical History Hypertension Hypothyroidism Lumbar radiculopathy Social History Smoking Status: Never smoker Hx Alcohol Use: Yes Alcohol type: beer and hard liquor Hx Substance Use: No Preferred Language: Armenian Communication Ability: Effective Geospatial Extractor Analysis Required: No Beliefs That Will Affect Care: None Current Living Situation: Spouse Other Information That Helps Us Care for You: No Feels Safe at Home: Yes Safety Concerns: Feels Safe At This Time Assistive Devices: Glasses Review of Systems Review of Systems: As per HPI, all other systems reviewed and negative Physical Exam Physical Exam: GENERAL: Comfortable, obese, pleasant, no respiratory distress SKIN: Normal color, warm HEENT: Bespectacled, [place] palpebral conjunctivae, no ptosis, moist buccal mucosa NECK : Supple, short neck, no tenderness CHEST : CTA, no tenderness HEART : RRR, no obvious murmurs ABDOMEN: Some distention, nontender BACK : Low back tenderness, negative straight leg raise test EXTREMITIES : No LE swelling/tenderness, no other conspicuous deformities noted NEUROLOGIC : Coherent, no facial asymmetry, gait and stance not assessed Results & Data Results & Data ([facility]) Vital Signs (Past 12 Hours) Vital Signs Temp Pulse Pulse Resp BP BP Pulse Ox 07/08/21 19:55 74 18 135/70 97 07/08/21 18:30 59 L 20 142/81 H 98 07/08/21 17:51 36.1 C L 67 16 97 Laboratory Results Laboratory Results WBC 9.08 K/uL (4.8-10.8) 07/08/21 20:47 RBC 5.13 M/uL (4.7-6.1) 07/08/21 20:47 Hgb 14.8 g/dL (14.0-18.0) 07/08/21 20:47 Hct 44.6 % (42-52) 07/08/21 20:47 MCV 86.9 fL (80-100) 07/08/21 20:47 MCH 28.8 pg (25-34) 07/08/21 20:47 MCHC 33.2 g/dL (32-36) 07/08/21 20:47 RDW Std Deviation 43.0 fL (36.4-46.3) 07/08/21 20:47 RDW Coeff of M[place]hi 13.6 % (11.5-14.5) 07/08/21 20:47 Plt Count 234 K/uL (130-400) 07/08/21 20:47 MPV 9.7 fL (7.4-10.4) 07/08/21 20:47 Immature Gran % (Auto) 0.7 % 07/08/21 20:47 Neut % (Auto) 50.1 % 07/08/21 20:47 Lymph % (Auto) 35.7 % 07/08/21 20:47 [place] % (Auto) 10.2 % 07/08/21 20:47 Eos % (Auto) 3.1 % 07/08/21 20:47 Baso % (Auto) 0.2 % 07/08/21 20:47 Neut # (Auto) 4.55 K/uL (1.4-6.5) 07/08/21 20:47 Lymph # (Auto) 3.24 K/uL (1.2-3.4) 07/08/21 20:47 [place] # (Auto) 0.93 K/uL (0.11-0.59) H 07/08/21 20:47 Eos # (Auto) 0.28 K/uL (0-0.5) 07/08/21 20:47 Baso # (Auto) 0.02 K/uL (0-0.2) 07/08/21 20:47 Immature Gran # (Auto) 0.06 K/uL (0.00-0.02) H 07/08/21 20:47 Sodium 136 mmol/L (136-145) 07/08/21 20:47 Potassium 4.5 mmol/L (3.5-5.1) 07/08/21 20:47 Chloride 100 mmol/L (98-107) 07/08/21 20:47 Carbon Dioxide 31 mmol/L (21-32) 07/08/21 20:47 Anion Gap 5 (3-11) 07/08/21 20:47 BUN 16 mg/dl (6-23) 07/08/21 20:47 Creatinine 1.25 mg/dl (0.6-1.4) 07/08/21 20:47 Est Cr Clr Drug Dosing 77.2 ml/min 07/08/21 20:47 Est GFR ( Amer) 72.1 ml/min 07/08/21 20:47 Est GFR (Non-Af Amer) 62.2 ml/min 07/08/21 20:47 BUN/Creatinine Ratio 12.8 (10-20) 07/08/21 20:47 Glucose 95 mg/dl (70-99(Fasting)) 07/08/21 20:47 Calcium 8.9 mg/dl (8.5-10.1) 07/08/21 20:47 Total Bilirubin 0.5 mg/dl (0.2-1.0) 07/08/21 20:47 AST 14 U/L (13-39) 07/08/21 20:47 ALT 34 U/L (7-52) 07/08/21 20:47 Alkaline Phosphatase 56 U/L (34-104) 07/08/21 20:47 Total Protein 6.3 gm/dl (6.0-8.3) 07/08/21 20:47 Albumin 3.6 gm/dl (3.4-5.0) 07/08/21 20:47 Globulin 2.7 gm/dl (2.5-4.0) 07/08/21 20:47 Albumin/Globulin Ratio 1.3 (0.9-2) 07/08/21 20:47 SARS-CoV-2, RNA, NAAT NEGATIVE (NEGATIVE) 07/08/21 18:57 Diagnostic Findings Chest x-ray as per my interpretation atelectasis, elevated right hemidiaphragm
[2021-07-08] MEDS: LACTATED RINGER'S 1,000 ML IV SCH (21:49)
[2021-07-08] MEDS: GABAPENTIN 300 MG CAP PO SCH (21:49)
[2021-07-08] MEDS: carvediloL 3.125 MG TAB PO SCH (21:52)
[2021-07-09] MEDS: HYDROmorphone INJ 0.5 MG/0.5 ML SYR IV PRN ×4 (00:14→21:52)
[2021-07-09] MEDS: ZOLPIDEM TARTRATE 10 MG TAB PO SCH ×2 (00:14→21:52)
[2021-07-09] MEDS ORDERED: ceFAZolin 2000MG 2,000 MG/15 ML SYR IV SCH (06:00)
[2021-07-09] MEDS: LEVOTHYROXINE SODIUM 200 MCG TABLET PO SCH (06:44)
--- NOTE | 2021-07-09 06:44 | XRay Report ---
XR chest 2V PA/lateral HISTORY: 61 years-old Male pre op preoperative exam. No acute chest complaints. COMPARISON: Chest radiographs 04/29/2017 TECHNIQUE: PA and lateral views of the chest FINDINGS: The cardiomediastinal and hilar silhouettes are within normal limits. No pneumothorax, large pleural effusion or overt pulmonary edema. Mild chronic interstitial coarsening of the lung bases. Degenerati ve changes of the shoulders and spine. IMPRESSION: No acute process. ACT 112: Negative or not required by law. The above report was generated using voice recognition software. It may contain grammatical, syntax o r spelling errors. Electronically signed by: Guanaco Cohen M.D. 07/09/2021 6:43 AM
[2021-07-09] MEDS: carvediloL 3.125 MG TAB PO SCH ×2 (07:55→21:04)
[2021-07-09] MEDS: IRBESARTAN 150 MG TAB PO SCH (07:56)
[2021-07-09] MEDS: GABAPENTIN 300 MG CAP PO SCH ×2 (07:56→21:04)
[2021-07-09] MEDS ORDERED: hydroCHLOROthiazide 25 MG TAB PO SCH (09:00)
--- NOTE | 2021-07-09 09:21 | History & Physical Report ---
Date of Service July 09, 2021 Assessment & Plan (1) Spinal stenosis of lumbar region with radiculopathy: Plan: Patient has an MRI dated 07/04/2021 that is able to reviewed. It does demonstrate severe lumbar spinal stenosis with marked facet hypertrophy at L3-L4 L4-5 with severe bilateral foraminal disease right greater than left at L5-S1. Assessment lumbar spinal stenosis with neurogenic claudication and acute radiculopathy with progressive neuro deficit. In light of this patient's findings and marked decline recommending urgent lumbar decompression and fusion L3-L4 L4-L5 L5-S1. Risk benefits pros cons and alternatives were outlined in detail. Risk include but not limited to anesthesia blindness stroke paralysis nerve damage blood loss requiring transfusion infection requiring reoperation benefits of the marked improvement of his radiculopathy hopefully stabilization of his progressive neuro deficit and at time of improvement. At this point we will wait for medical clearance and attempt surgery soon as possible. Admission and Anticipated Discharge Date Admission Date: July 08, 2021 History of Present Illness Chief Complaint: Severe back and right leg pain with progressive weakness. Primary Care Provider: Moreno Irwin MD This is a 7-year-old male seen just last week in my office. He presented with severe right-sided lumbar radiculopathy. He does have a previous history of chronic persistent back pain over the past several years with radiation of the bilateral buttocks. He had a marked decline in status over the past several weeks that has become acute over the weekend and symptoms required a visit to the emergency room and was subsequently admitted the patient for pain control and to urgently address his neurologic decline. He notes pain overlying the right buttock posterior thigh extending into the right foot and great toe. Is noted to stand and ambulate any distance. He is undergone a course of oral steroids without any resolution of his pain. He is trialed various narcotics and NSAIDs without improvement. He has been unable to sleep. It has progressed significantly. Left lower extremity is stable and without weakness. Allergies Allergy/AdvReac Type Severity Reaction Status Date / Time No Known Allergies Allergy Verified 07/08/21 19:14 Home Medications Medication Instructions Recorded Confirmed Type carvedilol 3.125 mg tablet 3.125 mg PO BID 07/04/21 07/08/21 History evolocumab 140 mg/mL subcutaneous 140 mg SUBCUT MONTHLY 07/04/21 07/08/21 History pen injector (Repatha ParkerClick) irbesartan 300 1 tab PO DAILY 07/04/21 07/08/21 History mg-hydrochlorothiazide 12.5 mg tablet levothyroxine 200 mcg tablet 200 mcg PO QAM 07/04/21 07/08/21 History zolpidem 10 mg tablet 10 mg PO HS 07/04/21 07/08/21 History gabapentin 300 mg capsule 300 mg PO BID PRN 07/08/21 07/08/21 History hydrocodone 5 mg-acetaminophen 325 1 tab PO Q6 PRN 07/08/21 07/08/21 History mg tablet Past Med/Surg History Medical History (Updated 07/09/21 @ 09:19 by Tonio Cancino DO) Hypertension Hypothyroidism Lumbar radiculopathy Social History Smoking Status: Never smoker Hx Alcohol Use: Yes Alcohol type: beer and hard liquor Hx Substance Use: No Preferred Language: Montserratian Communication Ability: Effective Horse Wrangler Required: No Beliefs That Will Affect Care: None Current Living Situation: Spouse Other Information That Helps Us Care for You: No Feels Safe at Home: Yes Safety Concerns: Feels Safe At This Time Assistive Devices: Glasses Physical Exam Physical Exam: On exam he walks with a markedly antalgic gait. He demonstrates a foot drop on the right. He has limited lumbar flexion and extension secondary to pain. Bench exam reveals a 4-/5 right dorsiflexion extensor hallucis longus compared to 5 or 5 on the left. The quadriceps are symmetric and intact. There is sensory deficits to the right lower extremity compared to the left. Deep tendon reflexes are diminished. Results & Data Results & Data ([facility]) Vital Signs (Past 12 Hours) Vital Signs Temp Pulse Pulse Pulse Resp BP Pulse Ox 07/09/21 09:00 120/82 07/09/21 07:24 36.7 C 67 16 168/99 H 94 07/08/21 22:42 36.6 C 63 18 138/87 99 07/08/21 21:50 61 137/91 Code Status & VTE Plan VTE Prophylaxis Plan VTE Prophylaxis will be ordered: Yes
--- NOTE | 2021-07-09 12:39 | Anesthesiology Consultation ---
Date of Service July 09, 2021 Assessment & Plan (1) Encounter for pre-operative examination: Chart Review Chart Review: Acceptable Risk for Surgery and Patient NOT seen in Pre Admission Testing Consults Requested none History Surgery Operation Date: 07/10/21 10:35 Proposed Procedures p L3-L5 Decompression Fusion, Spinal Cord Monitoring - Tonio Cancino DO Height/Weight Height: 6 ft Weight: 100.8 kg Allergies Allergy/AdvReac Type Severity Reaction Status Date / Time No Known Allergies Allergy Verified 07/08/21 19:14 Medications Home Medications Medication Instructions Recorded Confirmed Last Taken carvedilol 3.125 mg tablet 3.125 mg PO BID 07/04/21 07/08/21 07/08/21 05:00 evolocumab 140 mg/mL subcutaneous 140 mg SUBCUT MONTHLY 07/04/21 07/08/21 Unknown pen injector (Vladislav Wright) irbesartan 300 1 tab PO DAILY 07/04/21 07/08/21 07/08/21 05:00 mg-hydrochlorothiazide 12.5 mg tablet levothyroxine 200 mcg tablet 200 mcg PO QAM 07/04/21 07/08/21 07/08/21 05:00 zolpidem 10 mg tablet 10 mg PO HS 07/04/21 07/08/21 07/03/21 gabapentin 300 mg capsule 300 mg PO BID PRN 07/08/21 07/08/21 Unknown hydrocodone 5 mg-acetaminophen 325 1 tab PO Q6 PRN 07/08/21 07/08/21 07/08/21 05:00 mg tablet Active Medications Generic Name Dose Route Start Last Admin Trade Name Liliana PRN Reason Stop Dose Admin Carvedilol 3.125 mg 07/08/21 21:00 07/09/21 07:55 Carvedilol 3.125 Mg Tab PO 08/07/21 20:59 3.125 mg BID ANTONY Administration Gabapentin 300 mg 07/08/21 21:00 07/09/21 07:56 Gabapentin 300 Mg Cap PO 08/07/21 20:59 300 mg BID ANTONY Administration Hydromorphone HCl 0.5 mg 07/08/21 20:18 07/09/21 09:03 Hydromorphone Inj 0.5 Mg/0.5 Ml Syr IV 07/22/21 20:17 0.5 mg Q3H PRN Administration MOD pain (scale 4-6) & Pre PT Lactated Ringer's 1,000 mls @ 75 mls/hr 07/08/21 20:18 07/09/21 11:59 Lr IV 08/07/21 20:17 Infused .[id number] ANTONY Infusion Irbesartan 300 mg 07/09/21 09:00 07/09/21 07:56 Irbesartan 150 Mg Tab PO 08/08/21 08:59 300 mg DAILY ANTONY Administration Levothyroxine Sodium 200 mcg 07/09/21 06:30 07/09/21 06:44 Levothyroxine Sodium 200 Mcg Tablet PO 08/08/21 06:29 200 mcg DAILYBB ANTONY Administration Zolpidem Tartrate 10 mg 07/08/21 21:00 07/09/21 00:14 Zolpidem Tartrate 10 Mg Tab PO 08/07/21 20:59 10 mg HS ANTONY Administration NPO Date Last Intake of Fluids: 07/08/21 Time Last Intake of Fluids: 23:59 Date Last Intake of Solids: 07/08/21 Time Last Intake of Solids: 23:59 Past Medical History Medical History Hypertension Hypothyroidism Lumbar radiculopathy Obesity Social History Smoking Status: Never smoker Hx Alcohol Use: Yes Alcohol type: beer and hard liquor alcohol intake frequency: holidays/special occasions only Hx Substance Use: No Physical Exam Vital Signs Last Vital Signs Temp 36.7 C 07/09/21 07:24 Pulse 67 07/09/21 07:24 Resp 16 07/09/21 07:24 BP 120/82 07/09/21 09:00 Pulse Ox 94 07/09/21 07:24 Testing Laboratory Results 07/08/21 20:47 07/08/21 20:47 Blood Type A Positive 07/08/21 20:47 Antibody Screen NEGATIVE 07/08/21 20:47 Electrocardiogram Date: 07/09/21 Findings: + NSR @ (62) Chest X-Ray Date: 07/08/21 XR chest 2V PA/lateral HISTORY: 61 years-old Male pre op preoperative exam. No acute chest complaints. COMPARISON: Chest radiographs 04/29/2017 TECHNIQUE: PA and lateral views of the chest FINDINGS: The cardiomediastinal and hilar silhouettes are within normal limits. No pneumothorax, large pleural effusion or overt pulmonary edema. Mild chronic interstitial coarsening of the lung bases. Degenerative changes of the shoulders and spine. IMPRESSION: No acute process. ACT 112: Negative or not required by law. The above report was generated using voice recognition software. It may contain grammatical, syntax or spelling errors. Electronically signed by: Guanaco Cohen M.D. 07/09/2021 6:43 AM Dictated:07/09/21 0642
--- NOTE | 2021-07-09 13:22 | Hospitalist Progress Note ---
Date of Service July 09, 2021 Assessment & Plan (1) Lumbar radiculopathy: Plan: Planned for surgery in am with Dr. Cancino-no contraindication for proceeding with surgery at this time. No history of issues w anesthesia. Good functional capacity without symptoms. No h/o DVT-standard DVT prophylaxis per ortho spine team recommended. Cont current medications, especially coreg without stopping. Normal EKG. -cont pain control, PT/OT per Ortho team -cont current medications -medicine will cont to follow along throughout his hospital stay. (2) Hypertension: Plan: chronic, stable. At goal. CCM (3) Hypothyroidism: Plan: chronic, stable, cont home levothyroxine. (4) DVT prophylaxis: Plan: SCDs/ambulation as tolerated. Full Code Dispo- to home after successful post-op recovery in a few days. Thank you for this consultation! Ara Bell [facility] and Anticipated Discharge Date Admission Date: July 08, 2021 Subjective 61 yo M presents with lumbar pain wtih radiculopathy persistent for the past few weeks. He has sensation deficit at the lateral ankle of the right leg and pain is mostly down the right leg. He reports the pain feels sharp and numb. The pain presented during a golf game with an abnormal swing. He has tried prednisone, baclofen, ice, heat, Tylenol, ibuprofen, hydrocodone as outpatient with no relief. He regularly sees Dr. Lawrence and Velvet FRAZIER and has been referred to Dr. Cancino for lumbar surgery. He denies any issues with anesthesia in the past and is a very active gentleman, regularly playing golf and achieving greater than 4 METS consistently with no symptoms of chest pain or shortness of breath. He has no history of cardiac problems or history of stroke. Medications were reviewed. Review of Systems Review of Systems: All systems were reviewed and negative except as indicated above. Physical Exam Physical Exam: CONSTITUTIONAL: WNWD, vitals as above, generally well- appearing, NAD EYES: normal conjunctivae, no scleral icterus ENT: external ear and nose normal NECK: trachea midline RESPIRATORY: clear to auscultation bilaterally, no crackles, rales or wheezes, normal respiratory effort CARDIOVASCULAR: regular rate and rhythm, S1 and 2 heard without murmurs, gallops or rubs, no JVD, no peripheral edema CHEST: inspection of chest was normal GASTROINTESTINAL: normal bowel sounds, soft, nontender, ND, no guarding MUSCULOSKELETAL: strength 5/5 throughout, head is normocephalic and atraumatic, neck supple, normal palpation of chest wall without tenderness SKIN: warm and dry NEUROLOGIC: -SLR test bilaterally. No facial palsy, no dysarthria. Touch, pain and proprioception normal. CN 2-12 grossly intact, + sensory decreased in right lateral ankle, normal cognition, normal speech, no tremor PSYCHIATRIC: alert cooperative and oriented to person, place and time. Euthymic mood, makes good eye contact, language grossly intact, recent and remote memory grossly intact. Results & Data Results & Data ([facility]) Vital Signs (Past 12 Hours) Vital Signs Temp Pulse Resp BP Pulse Ox 07/09/21 09:00 120/82 07/09/21 07:24 36.7 C 67 16 168/99 H 94 Laboratory Results Short CBC 07/08/21 Range/Units 20:47 WBC 9.08 (4.8-10.8) K/uL Hgb 14.8 (14.0-18.0) g/dL Hct 44.6 (42-52) % Plt Count 234 (130-400) K/uL BMP 07/08/21 20:47 Sodium 136 Potassium 4.5 Chloride 100 Carbon Dioxide 31 BUN 16 Creatinine 1.25 Glucose 95 Calcium 8.9 Liver Function 07/08/21 Range/Units 20:47 Total Bilirubin 0.5 (0.2-1.0) mg/dl AST 14 (13-39) U/L ALT 34 (7-52) U/L Alkaline Phosphatase 56 (34-104) U/L Albumin 3.6 (3.4-5.0) gm/dl Diagnostic Findings Chest X-Ray 07/08/21 20:18 XR chest 2V PA/lateral HISTORY: 61 years-old Male pre op preoperative exam. No acute chest complaints. COMPARISON: Chest radiographs 04/29/2017 TECHNIQUE: PA and lateral views of the chest FINDINGS: The cardiomediastinal and hilar silhouettes are within normal limits. No pneumothorax, large pleural effusion or overt pulmonary edema. Mild chronic interstitial coarsening of the lung bases. Degenerative changes of the shoulders and spine. IMPRESSION: No acute process. ACT 112: Negative or not required by law. The above report was generated using voice recognition software. It may contain grammatical, syntax or spelling errors. Electronically signed by: Guanaco Cohen M.D. 07/09/2021 6:43 AM Medications Administered Current Inpatient Medications Acetaminophen (Acetaminophen 500 Mg Tab) 1,000 mg PO Q8H PRN PRN Reason: MILD Pain Scale 1,2,3 & Pre PT Stop: 08/07/21 20:17 Carvedilol (Carvedilol 3.125 Mg Tab) 3.125 mg PO BID [facility] Stop: 08/07/21 20:59 Last Admin: 07/09/21 07:55 Dose: 3.125 mg Documented by: Gabapentin (Gabapentin 300 Mg Cap) 300 mg PO BID [facility] Stop: 08/07/21 20:59 Last Admin: 07/09/21 07:56 Dose: 300 mg Documented by: Hydromorphone HCl (Hydromorphone Inj 0.5 Mg/0.5 Ml Syr) 0.5 mg IV Q3H PRN PRN Reason: MOD pain (scale 4-6) & Pre PT Stop: 07/22/21 20:17 Last Admin: 07/09/21 09:03 Dose: 0.5 mg Documented by: Hydromorphone HCl (Hydromorphone Inj 1 Mg/Ml Syringe) 1 mg IV Q3H PRN PRN Reason: severe pain (scale 7-10) Stop: 07/22/21 20:17 Cefazolin Sodium (Ancef 2000mg) 2,000 mg in 15 mls @ 3.75 mls/min IV PREOP [facility]; Protocol Stop: 07/10/21 05:59 Lactated Ringer's (Lr) 1,000 mls @ 75 mls/hr IV .[id number] [facility] Stop: 08/07/21 20:17 Last Infusion: 07/09/21 11:59 Dose: Infused Documented by: Promethazine HCl 12.5 mg/ (Sodium Chloride) 50.5 mls @ 202 mls/hr IV Q6H PRN PRN Reason: Nausea &/or Vomiting Stop: 08/07/21 20:17 Acetaminophen (Ofirmev) 1,000 mg in 100 mls @ 400 mls/hr IV Q8H PRN PRN Reason: Pain Rating 1-3 & Pre PT Stop: 07/11/21 20:17 Irbesartan (Irbesartan 150 Mg Tab) 300 mg PO DAILY ANTONY Stop: 08/08/21 08:59 Last Admin: 07/09/21 07:56 Dose: 300 mg Documented by: Levothyroxine Sodium (Levothyroxine Sodium 200 Mcg Tablet) 200 mcg PO DAILYBB [facility] Stop: 08/08/21 06:29 Last Admin: 07/09/21 06:44 Dose: 200 mcg Documented by: Lorazepam (Lorazepam 0.5 Mg Tab) 0.5 mg PO Q8H PRN PRN Reason: sedation/anxiety Stop: 08/07/21 20:17 Lorazepam (Lorazepam 2 Mg/1 Ml Vial) 0.5 mg IV Q8H PRN PRN Reason: Sedation/Anxiety Stop: 08/07/21 20:17 Magnesium Hydroxide (Magnesium Hydroxide Susp 30 Ml Udc) 30 ml PO Q24H PRN PRN Reason: Constipation Stop: 08/07/21 20:17 Metoclopramide HCl (Metoclopramide Hcl Inj 5 Mg/Ml 2 Ml Vial) 10 mg IV Q6H PRN PRN Reason: Nausea &/or Vomiting Stop: 08/07/21 20:17 Naloxone HCl (Naloxone Hcl 0.4 Mg/1 Ml Vial/Carp) 0.1 mg IV Q5M PRN PRN Reason: Oversedation/respiratory dep Stop: 08/07/21 20:17 Ondansetron HCl (Ondansetron Inj 2 Mg/Ml 2 Ml Vial) 4 mg IV Q6H PRN PRN Reason: Nausea &/or Vomiting Stop: 08/07/21 20:17 Ondansetron HCl (Ondansetron 4 Mg Od Tab) 4 mg PO Q6H PRN PRN Reason: Nausea Stop: 08/07/21 20:17 Oxycodone HCl (Oxycodone Hcl Ir 5 Mg Tab (Immediate Release)) 5 - 10 mg PO Q4H PRN PRN Reason: mod to severe pain Stop: 07/22/21 20:17 Zolpidem Tartrate (Zolpidem Tartrate 10 Mg Tab) 10 mg PO HS [facility] Stop: 08/07/21 20:59 Last Admin: 07/09/21 00:14 Dose: 10 mg Documented by:
[2021-07-09] MEDS: LACTATED RINGER'S 1,000 ML IV SCH ×2 (21:01)
[2021-07-10] MEDS: LEVOTHYROXINE SODIUM 200 MCG TABLET PO SCH (05:42)
[2021-07-10] MEDS ORDERED: ceFAZolin 2000MG 2,000 MG/15 ML SYR IV SCH (06:00)
[2021-07-10] MEDS: HYDROmorphone INJ 0.5 MG/0.5 ML SYR IV PRN ×2 (07:30→15:38)
[2021-07-10] MEDS: GABAPENTIN 300 MG CAP PO SCH ×2 (07:32→20:37)
[2021-07-10] MEDS: carvediloL 3.125 MG TAB PO SCH ×2 (07:33→20:34)
[2021-07-10] MEDS: IRBESARTAN 150 MG TAB PO SCH (07:33)
--- NOTE | 2021-07-10 09:39 | History & Physical Bridge Note ---
Date of Service July 10, 2021 History & Physical Bridge Note I have examined the patient, reviewed the History & Physical and in the interval since the performance of the History & Physical I have noted the following changes of clinical significance: no changes noted patient has progressive neurologic deficit with weakness affecting the right foot and develop foot drop. He is requiring IV narcotics to control his pain procedure. He requires emergent decompression fusion to help with his pain and hopefully prevent permanent neurologic deficit. Require decompression fusion L3-S1.
[2021-07-10] MEDS ORDERED: ONDANSETRON INJ 2 MG/ML 2 ML VIAL IV PRN ×2 (09:44→14:55)
[2021-07-10] MEDS ORDERED: PROMETHAZINE HCL 12.5 MG in SODIUM CHLORIDE 0.9% 50 ML IV PRN ×2 (09:44→14:55)
[2021-07-10] MEDS ORDERED: ATROPINE SULFATE 0.1 MG/ML 10ML SYR IV PRN (09:44)
[2021-07-10] MEDS ORDERED: ePHEDrine sulfate 50 MG/ML AMP IV PRN (09:44)
[2021-07-10] MEDS ORDERED: HYDROmorphone INJ 2 MG/ML SYR/VIAL IV PRN (09:44)
[2021-07-10] MEDS ORDERED: ceFAZolin 330 MG/ML 1 GM VIAL ONE (09:58)
[2021-07-10] MEDS ORDERED: MIDAZOLAM HCL 1 MG/ML 2ML VIAL ONE (09:58)
[2021-07-10] MEDS ORDERED: fentaNYL citrate 100 MCG/2 ML VIAL ONE (09:58)
[2021-07-10] MEDS ORDERED: BUPIVACAINE/EPINEPHRINE 0.25% 1:200,000 30 ML VIAL ONE (09:58)
[2021-07-10] MEDS ORDERED: FLOSEAL HEMOSTATIC MATRIX 10ML TOP ONE (10:48)
[2021-07-10] MEDS ORDERED: PROPOFOL IV EMULSION 10 MG/ML 20 ML VIAL IV ONE (11:41)
[2021-07-10] MEDS ORDERED: ONDANSETRON INJ 2 MG/ML 2 ML VIAL ONE (11:41)
[2021-07-10] MEDS ORDERED: LIDOCAINE 2% 2 ML VIAL/AMP(20MG/ML) INFIL ONE (11:41)
[2021-07-10] MEDS ORDERED: NEOSTIGMINE METHYLSULFATE 1 MG/ML 10ML VIAL ONE (11:41)
[2021-07-10] MEDS ORDERED: DEXAMETHASONE SOD INJ 4 MG/ML VIAL ONE (11:41)
[2021-07-10] MEDS ORDERED: PHENYLEPHRINE 100MCG/ML 5ML SYR ONE (11:41)
[2021-07-10] MEDS ORDERED: ePHEDrine sulfate 50 MG/ML SYR ONE (11:41)
[2021-07-10] MEDS ORDERED: GLYCOPYRROLATE 0.2 MG/ML VIAL ONE (11:41)
--- NOTE | 2021-07-10 13:16 | Operative Report ---
Post Operative Report Pre & Post Diagnosis Operation Date: 07/10/21 10:35 Pre-Op Diagnosis: Spinal stenosis of lumbar region with radiculopathy Post-Op Diagnosis: Spinal stenosis of lumbar region with radiculopathy I identified the patient and participated in the time-out.: Yes Procedure Operation Date: 07/10/21 10:35 Actual Procedures #1 lumbar decompression with bilateral medial facetectomies and foraminotomies L2-L3 L3-L4 L4-5 and L5-S1. #2 posterior spinal fusion L3-L4 L4-L5 L5-S1. #3 placement of posterior segmental instrumentation at L3-S1. #4 interbody fusion L3-L4, L4-5 and L5-S1. #5 placement of Spira cage 12 x 26 mm L3-L4, 13 x 26 mm at L4-L5 and 12 x 26 mm at L5-S1. #6 placement locally harvested morselized autograft in the posterior gutters. #7 placement of I factor combined with V toss in the interbody space and posterior lateral gutters. Surgeon Tonio Cancino, DO Mounter Roseanne Perez Estimated Blood Loss 400 Findings Consistent with Post-Op Diagnosis Specimens None Indications This is a 61-year-old male who presents above-mentioned diagnosis presenting with marked neurologic decline and severe pain he is undergoing urgent decompression fusion. Description of Procedure Patient was met with identified informed consent obtained. Patient was then taken underwent a patient placed in prone position the Gove table top Reinaldo frame. All bony prominences well-padded eyes inspected to ensure no external pressure placed upon the. This point the lumbar spine was prepped and draped in normal sterile fashion. Sharp dissection with the assistance of Bovie cautery was performed down to and exposing the lamina and transverse processes of L3-L4- L5 and the sacral ala bilaterally. Dobbs cephalad fashion complete laminectomy L5 L4 L3 and partial laminectomy of L2 was performed including bilateral medial facetectomies and foraminotomies addressing severe spinal stenosis. Pedicle screws were then placed at L3-L4-L5 and S1 levels bilaterally with assistance of fluoroscopy and the proper sized jean placed. By way of a transforaminal portion of right complete discectomy of L5-S1 was performed endplates curetted to subcortical being bone and a 12 x 26 mm spiral cage with I factor tapped in position. Then proceeded to L4-L5 and again by way of transforaminal portion of right complete discectomy performed endplates curetted to subcortical bleeding bone and again a 13 x 26 mm Spira cage with I factor tapped into position. Lastly proceeded to L3-[address] of a transforaminal portion right complete discectomy performed endplates curetted to subcortically bone and a 12 x 26 mm spiral cage filled with I factor tapped in position. The rods then compressed locked into final position bilaterally. The transverse processes of L3-L4-L5 and the sacral ala burred to subcortical bleeding bone. I factor combined with V toss and locally harvested morselized autograft was then placed in the posterior gutters. 15 round REENA drain inserted. The incision was then closed with 1 Vicryl the fascia 2-0 Vicryl subcutaneously and 4 Monocryl for final skin closure. Steri-Strips dressings placed. Patient waken taken PACU stable condition. Please note spinal cord monitoring was utilized at the procedure no changes noted. Lastly Roseanne Perez was present out the entire surgery and while the patient positioning complex portions of the surgery and fascial closure. I attest to the content of the Intraoperative Record and any orders documented therein. Any exceptions are noted below.
[2021-07-10] MEDS: fentaNYL citrate 100 MCG/2 ML VIAL IV PRN ×4 (13:47→14:06)
--- NOTE | 2021-07-10 14:14 | Anesthesiology Progress Note ---
Date of Service July 10, 2021 Anesthesia Post Procedure Vital Signs Vital Signs: Temp Pulse Pulse Pulse Resp BP BP 07/10/21 14:10 61 12 105/61 07/10/21 14:00 67 16 106/60 07/10/21 13:50 65 14 112/67 07/10/21 13:40 66 14 103/62 07/10/21 13:31 36.1 C L 72 17 96/55 L 07/10/21 09:05 37 C 66 18 122/77 07/10/21 07:15 36.6 C 69 16 146/92 H 07/09/21 21:44 36.7 C 66 16 127/77 07/09/21 15:13 36.7 C 63 16 111/76 Pulse Ox 07/10/21 14:10 98 07/10/21 14:00 94 07/10/21 13:50 99 07/10/21 13:40 99 07/10/21 13:31 99 07/10/21 09:05 97 07/10/21 07:15 95 07/09/21 21:44 95 07/09/21 15:13 97 Pain Intensity Right Lower Leg: Pain Intensity: 6 Back: Pain Intensity: 4 Transfer of Care Handoff Completed per policy Notes Mental Status: alert / awake / arousable and participated in evaluation Patient Amnestic to Procedure: Yes Nausea / Vomiting: adequately controlled Pain: adequately controlled Airway Patency, RR, SpO2: stable & adequate BP & HR: stable & adequate Hydration State: stable & adequate Anesthetic Complications: no major complications apparent
[2021-07-10] MEDS ORDERED: MAGNESIUM HYDROXIDE SUSP 30 ML UDC PO PRN (14:55)
[2021-07-10] MEDS ORDERED: bisacodyL 10 MG SUPP PR PRN (14:55)
[2021-07-10] MEDS ORDERED: DO NOT ADMINISTER PNEUMOCOCCAL VACCINE PRN (14:55)
[2021-07-10] MEDS ORDERED: DO NOT ADMINISTER FLU VACCINE PRN (14:55)
[2021-07-10] MEDS ORDERED: LORazepam 0.5 MG TAB PO PRN (14:55)
[2021-07-10] MEDS ORDERED: METOCLOPRAMIDE HCL INJ 5 MG/ML 2 ML VIAL IV PRN (14:55)
[2021-07-10] MEDS ORDERED: GABAPENTIN 300 MG CAP PO PRN (14:55)
[2021-07-10] MEDS ORDERED: SOD PHOSPHATE/SOD BIPHOSPHATE ENEMA 132 ML BTL PR PRN (14:55)
[2021-07-10] MEDS ORDERED: LORazepam 2 MG/1 ML VIAL IV PRN (14:55)
[2021-07-10] MEDS ORDERED: ACETAMINOPHEN 1,000 MG/100 ML VIAL IV PRN (14:55)
[2021-07-10] MEDS ORDERED: ONDANSETRON 4 MG OD TAB PO PRN (14:55)
[2021-07-10] MEDS ORDERED: ALUMINUM/MAGNESIUM SUSP 30 ML UDC PO PRN (14:55)
[2021-07-10] MEDS ORDERED: diphenhydrAMINE Capsule 25 MG CAP PO PRN (14:55)
[2021-07-10] MEDS ORDERED: FAMOTIDINE 20 MG TAB PO PRN (14:55)
[2021-07-10] MEDS ORDERED: ACETAMINOPHEN 500 MG TAB PO PRN (14:55)
[2021-07-10] MEDS ORDERED: NALOXONE HCL 0.4 MG/1 ML VIAL/CARP IV PRN (14:55)
[2021-07-10] MEDS ORDERED: hydrOXYzine HCl 25 MG TAB PO PRN (14:55)
[2021-07-10] MEDS: LACTATED RINGER'S 1,000 ML IV SCH ×3 (15:04→20:30)
--- NOTE | 2021-07-10 15:15 | Fluoroscopy Report ---
INTRAOPERATIVE RADIOGRAPHS CLINICAL HISTORY: L3-S1 spinal fusion. Fluoroscopy time: 32 seconds. FINDINGS: 2 spot fluoroscopic views of the lumbar spine are presented. There has been discectomy at L 3-L4, L4-L5, and L5-S1 with laminectomy and posterior fusion at L3-S1. Interpedicular screws are pres ent at all levels. The orthopedic hardware appears intact. IMPRESSION: Intraoperative images from lumbar spinal fusion surgery as above. Electronically signed by: Solo Arteaga M.D. 07/10/2021 3:14 PM
--- NOTE | 2021-07-10 16:29 | Hospitalist Progress Note ---
Date of Service July 10, 2021 Assessment & Plan (1) Lumbar radiculopathy: Plan: per previous service notes with addendum: Planned for surgery in am with Dr. Cancino-no contraindication for proceeding with surgery at this time. No history of issues w anesthesia. Good functional capacity without symptoms. No h/o DVT-standard DVT prophylaxis per ortho spine team recommended. Cont current medications, especially coreg without stopping. Normal EKG. -cont pain control, PT/OT per Ortho team -cont current medications -medicine will cont to follow along throughout his hospital stay. 07/10 s/p surgery today stable overall monitor Hg PRN analgesics PT/OT DVT prophylaxis per Ortho (2) Hypertension: Plan: chronic, stable. continue Irbesartan, Coreg HCTZ held to prevent dehydration (3) Hypothyroidism: Plan: chronic, stable, cont home levothyroxine. (4) DVT prophylaxis: Plan: SCDs/ambulation as tolerated. Full Code Dispo- to home after successful post-op recovery in a few days. Thank you for this consultation. We will follow the patient with you during their hospital stay. You can reach a member of the [facility] Hospitalist Team 23/09 via pager @ [phone]. Admission and Anticipated Discharge Date Admission Date: July 08, 2021 Subjective ff up for s/p lumbar decompression, etc seen resting in bed, comfortable in good spirits states he feels fine overall back pain mild still has some numbness on the right lower leg no chest pain, dyspnea, palpitations, dizziness no other symptoms Review of Systems Review of Systems: all noted and negative except for above Physical Exam Physical Exam: General- oriented x 3, not in distress, speaks in sentences with no effort or accessory muscle use Head- atraumatic Eyes- PERRL, EOMI, anicteric ENT- oropharynx clear Neck- supple, no JVD, no adenopathy, no thyromegaly; carotids +2/2, no bruits appreciated Lungs- clear to auscultation bilaterally, no rales/wheezes Heart- normal rate, regular rhythm; no murmur, no gallop, no rub appreciated Abdomen- normal bowel sounds, nondistended, soft, nontender, no masses or hepatosplenomegaly Extremities- no pretibial edema, no calf tenderness; peripheral pulses intact Back- dressing in place: no bleeding or discharge REENA drain in place: very minimal output Neuro- alert, oriented x 3; CN 2-12 grossly intact; motor 5/5 bilaterally;s ensation 100% on all extremities; no other gross focal neurologic deficits Skin- warm & dry Results & Data Results & Data ([facility]) Vital Signs (Past 12 Hours) Vital Signs Temp Pulse Pulse Pulse Resp BP BP 07/10/21 15:29 36.5 C 78 16 118/75 07/10/21 14:56 84 16 117/71 07/10/21 14:30 36.7 C 81 16 109/71 07/10/21 14:20 36.2 C L 65 19 111/62 07/10/21 14:10 61 12 105/61 07/10/21 14:00 67 16 106/60 07/10/21 13:50 65 14 112/67 07/10/21 13:40 66 14 103/62 07/10/21 13:31 36.1 C L 72 17 96/55 L 07/10/21 09:05 37 C 66 18 122/77 07/10/21 07:15 36.6 C 69 16 146/92 H Pulse Ox 07/10/21 15:29 96 07/10/21 14:56 96 07/10/21 14:30 95 07/10/21 14:20 97 07/10/21 14:10 98 07/10/21 14:00 94 07/10/21 13:50 99 07/10/21 13:40 99 07/10/21 13:31 99 07/10/21 09:05 97 07/10/21 07:15 95 all noted and reviewed including below
[2021-07-10] MEDS: ceFAZolin 2000MG 2,000 MG/15 ML SYR IV SCH (17:49)
[2021-07-10] MEDS: ZOLPIDEM TARTRATE 10 MG TAB PO SCH (20:36)
[2021-07-10] MEDS: DOCUSATE SODIUM/SENNA 50/8.6MG TAB PO SCH (20:37)
[2021-07-10] MEDS: HYDROmorphone INJ 1 MG/ML SYRINGE IV PRN ×2 (20:38→23:38)
[2021-07-11] MEDS: ceFAZolin 2000MG 2,000 MG/15 ML SYR IV SCH (02:18)
[2021-07-11] MEDS: HYDROmorphone INJ 1 MG/ML SYRINGE IV PRN ×2 (02:19→05:35)
[2021-07-11] MEDS: LACTATED RINGER'S 1,000 ML IV SCH (03:14)
[2021-07-11] MEDS: POLYETHYLENE (MIRALAX) 17 GM PACK PO SCH ×4 (05:34→23:52)
[2021-07-11] MEDS: LEVOTHYROXINE SODIUM 200 MCG TABLET PO SCH (05:35)
[2021-07-11 06:30] LABS: Hematocrit (blood only) 39.3 % (42-52); Hemoglobin 12.9 g/dL (14.0-18.0); Mean Corpuscular Hemoglobin 29.1 pg (25-34); Mean Corpuscular Hgb Conc 32.8 g/dL (32-36); Mean Corpuscular Volume 88.7 fL (80-100); Mean Platelet Volume 9.6 fL (7.4-10.4); Platelet Count 219 K/uL (130-400); RDW Coefficient of Variation 13.6 % (11.5-14.5); RDW Standard Deviation 44.6 fL (36.4-46.3); Red Blood Count 4.43 M/uL (4.7-6.1); White Blood Count 16.79 K/uL (4.8-10.8)
[2021-07-11 06:53] LABS: Eosinophils # (auto) 0.01 K/uL (0-0.5); Eosinophils % (auto) 0.1 %; Immature Granulocytes # (auto) 0.05 K/uL (0.00-0.02); Immature Granulocytes % (auto) 0.3 %; Lymphocytes # (auto) 1.44 K/uL (1.2-3.4); Lymphocytes % (auto) 8.6 %; Monocytes # (auto) 2.34 K/uL (0.11-0.59); Monocytes % (auto) 13.9 %; Neutrophils # (auto) 12.95 K/uL (1.4-6.5); Neutrophils % (auto) 77.1 %
[2021-07-11 07:03] LABS: BUN Creatinine Ratio 14.5 (10-20); Calcium 8.8 mg/dl (8.5-10.1); Creatinine Clr Calc Pharmacy 87.8 ml/min; Est GFR (African American) 84.1 ml/min; Est GFR (Non-African American) 72.6 ml/min; Potassium 4.5 mmol/L (3.5-5.1)
--- NOTE | 2021-07-11 07:05 | Electrocardiogram Report ---
Test Reason : Blood Pressure : / mmHG Vent. Rate : 062 BPM Atrial Rate : 062 BPM P-R Int : 134 ms QRS Dur : 082 ms QT Int : 398 ms P-R-T Axes : 014 023 043 degrees QTc Int : 403 ms Normal sinus rhythm Normal ECG When compared with ECG of 29-APR-2017 11:59, No significant change was found Confirmed by Ronni Mulligan ([id number]) on 07/11/2021 7:04:51 AM Referred By: Tonio Cancino Confirmed By:Ronni Mulligan
[2021-07-11] MEDS: GABAPENTIN 300 MG CAP PO SCH ×2 (08:54→20:42)
[2021-07-11] MEDS: carvediloL 3.125 MG TAB PO SCH ×2 (08:55→20:42)
[2021-07-11] MEDS: IRBESARTAN 150 MG TAB PO SCH (08:55)
--- NOTE | 2021-07-11 10:35 | Orthopedic Progress Note ---
Date of Service July 11, 2021 Assessment & Plan (1) Spinal stenosis of lumbar region with radiculopathy: Plan: This time we will continue physical therapy monitor his REENA operatively discharge home in next few days. Admission and Anticipated Discharge Date Admission Date: July 08, 2021 Subjective Back pain is controlled leg pain markedly improved Physical Exam Physical Exam: Patient is in the chair at the bedside. Is good strength testing. Appears comfortable. Results & Data ([facility]) Vital Signs (Past 12 Hours) Vital Signs Temp Pulse Resp BP Pulse Ox 07/11/21 07:46 36.8 C 85 18 118/82 95 07/11/21 01:21 36.7 C 85 18 125/75 95
[2021-07-11] MEDS: HYDROmorphone INJ 0.5 MG/0.5 ML SYR IV PRN ×2 (11:12→16:28)
--- NOTE | 2021-07-11 13:30 | Hospitalist Progress Note ---
Date of Service July 11, 2021 Assessment & Plan (1) Lumbar radiculopathy: Plan: per previous service notes with addendum: Planned for surgery in am with Dr. Cancino-no contraindication for proceeding with surgery at this time. No history of issues w anesthesia. Good functional capacity without symptoms. No h/o DVT-standard DVT prophylaxis per ortho spine team recommended. Cont current medications, especially coreg without stopping. Normal EKG. -cont pain control, PT/OT per Ortho team -cont current medications -medicine will cont to follow along throughout his hospital stay. 07/11 Stable overall Hemoglobin 12.9, asymptomatic monitor Hg PRN analgesics PT/OT DVT prophylaxis per Ortho (2) Hypertension: Plan: chronic, stable. continue Irbesartan, Coreg HCTZ held to prevent dehydration (3) Hypothyroidism: Plan: chronic, stable, cont home levothyroxine. (4) DVT prophylaxis: Plan: SCDs/ambulation as tolerated. Full Code Dispo- to home after successful post-op recovery in a few days. Thank you for this consultation. We will follow the patient with you during their hospital stay. You can reach a member of the [facility] Hospitalist Team 23/09 via pager @ [phone]. Admission and Anticipated Discharge Date Admission Date: July 08, 2021 Subjective Follow-up for status post lumbar decompression procedure, etc. Seen resting in bed, sitting up, not in distress States she feels fine today overall Minimal back pain Still has some numbness on right toes, pain on the distal right lower leg Ambulating with no problems no chest pain, dyspnea, palpitations, dizziness No other symptoms Review of Systems Review of Systems: all noted and negative except for above Physical Exam Physical Exam: General- oriented x 3, not in distress, speaks in sentences with no effort or accessory muscle use Eyes- anicteric Neck- no JVD Lungs- clear breath sounds bilaterally, no rales/wheezes Heart- normal rate, regular rhythm; no murmurs Abdomen- normal bowel sounds, nondistended, soft, nontender Back-dressing in place, no bleeding or discharge Extremities- no pretibial edema, no calf tenderness Neuro- alert, oriented x 3; no gross focal neurologic deficits Skin- warm & dry Results & Data Results & Data ([facility]) Vital Signs (Past 12 Hours) Vital Signs Temp Pulse Resp BP Pulse Ox 07/11/21 07:46 36.8 C 85 18 118/82 95 all noted and reviewed including below
[2021-07-11] MEDS: DOCUSATE SODIUM/SENNA 50/8.6MG TAB PO SCH (20:42)
[2021-07-11] MEDS: ZOLPIDEM TARTRATE 10 MG TAB PO SCH (20:42)
[2021-07-11] MEDS: oxyCODONE HCL IR 5 MG TAB (IMMEDIATE RELEASE) PO PRN (20:47)
[2021-07-12] MEDS: LEVOTHYROXINE SODIUM 200 MCG TABLET PO SCH (05:33)
[2021-07-12] MEDS: POLYETHYLENE (MIRALAX) 17 GM PACK PO SCH ×3 (05:34→17:51)
[2021-07-12] MEDS: IRBESARTAN 150 MG TAB PO SCH (08:39)
[2021-07-12] MEDS: GABAPENTIN 300 MG CAP PO SCH ×2 (08:39→20:15)
[2021-07-12] MEDS: carvediloL 3.125 MG TAB PO SCH ×2 (08:39→20:17)
[2021-07-12] MEDS: traMADol HCL 50 MG TABLET PO PRN ×2 (08:40→20:18)
--- NOTE | 2021-07-12 09:07 | Orthopedic Progress Note ---
Date of Service July 12, 2021 Assessment & Plan (1) Lumbar radiculopathy: Plan: At this time we will continue physical therapy monitor his REENA output anticipate discharge home tomorrow. Admission and Anticipated Discharge Date Admission Date: July 08, 2021 Subjective Back pain controlled leg symptoms markedly improved Physical Exam Physical Exam: Patient is stable at the bedside. Skin strength testing. Appears comfortable. Results & Data ([facility]) Vital Signs (Past 12 Hours) Vital Signs Temp Pulse Resp BP Pulse Ox 07/12/21 07:41 37 C 93 H 18 111/76 95
[2021-07-12] MEDS: oxyCODONE HCL IR 5 MG TAB (IMMEDIATE RELEASE) PO PRN (11:12)
[2021-07-12 14:29] LABS: Hematocrit (blood only) 32.7 % (42-52); Hemoglobin 10.8 g/dL (14.0-18.0)
[2021-07-12 14:57] LABS: BUN Creatinine Ratio 18.4 (10-20); Calcium 8.3 mg/dl (8.5-10.1); Creatinine Clr Calc Pharmacy 77.2 ml/min; Est GFR (African American) 72.1 ml/min; Est GFR (Non-African American) 62.2 ml/min; Potassium 4.3 mmol/L (3.5-5.1)
[2021-07-12] MEDS: SODIUM CHLORIDE 0.9% 1000ML 1,000 ML IV SCH (16:50)
--- NOTE | 2021-07-12 17:46 | Ultrasound Report ---
US venous doppler LE RT CLINICAL HISTORY: r/o dvt TECHNIQUE: Right lower extremity real-time compression venous ultrasound with Color Doppler imaging. Utilizing real-time ultrasonic imaging multiple real time high-resolution ultrasonic images with comp ression and noncompression maneuvers of the deep venous system in addition to color doppler imaging w ere performed from the common femoral vein through the proximal calf veins. COMPARISON: None available at the time of this dictation. FINDINGS: Currently there is normal compressibility of the deep venous system from the common femoral vein thro ugh the proximal calf veins. No current evidence of acute thrombosis is identified. Impression: No evidence of deep venous thrombus. ACT 112: Negative or not required by law. Electronically signed by: Saman Rivera M.D. 07/12/2021 5:44 PM
[2021-07-12] MEDS: ACETAMINOPHEN 500 MG TAB PO SCH (17:49)
--- NOTE | 2021-07-12 17:57 | Hospitalist Progress Note ---
Date of Service July 12, 2021 Assessment & Plan (1) Lumbar radiculopathy: Plan: per previous service notes with addendum: Planned for surgery in am with Dr. Cancino-no contraindication for proceeding with surgery at this time. No history of issues w anesthesia. Good functional capacity without symptoms. No h/o DVT-standard DVT prophylaxis per ortho spine team recommended. Cont current medications, especially coreg without stopping. Normal EKG. -cont pain control, PT/OT per Ortho team -cont current medications -medicine will cont to follow along throughout his hospital stay. 07/12 Stable overall Hemoglobin 10.8, asymptomatic monitor Hg PRN analgesics PT/OT DVT prophylaxis per Ortho Check Doppler ultrasound right lower extremity to rule out DVT DC IV Dilaudid and oxycodone which could explain patient's symptoms today Start Tylenol 1 g scheduled every 8 hours Start IV NSS Monitor closely (2) Hypertension: Plan: chronic, stable. continue Irbesartan, Coreg HCTZ held to prevent dehydration (3) Hypothyroidism: Plan: chronic, stable, cont home levothyroxine. (4) DVT prophylaxis: Plan: SCDs/ambulation as tolerated. Full Code Thank you for this consultation. We will follow the patient with you during their hospital stay. You can reach a member of the [employer] Hospitalist Team 23/09 via pager @ [phone]. Admission and Anticipated Discharge Date Admission Date: July 08, 2021 Subjective Follow-up status post lumbar decompression surgery, etc. Seen resting in bed sleeping but easily awakened States he does not feel good today, was confused last night, feeling tired and "just off" today Denies headache, dizziness, cough, shortness of breath, abdominal pain, nausea vomiting, problems with urination or bowel movement, chills Had mild fever yesterday of 38 degrees Still having pain on the right lower leg No other symptoms Review of Systems Review of Systems: all noted and negative except for above Physical Exam Physical Exam: General- oriented x 3, not in distress, speaks in sentences with no effort or accessory muscle use Eyes- anicteric Neck- no JVD Lungs- clear breath sounds bilaterally, no crackles or wheezing Heart- normal rate, regular rhythm; no murmurs Abdomen- normal bowel sounds, nondistended, soft, nontender Extremities-mild edema right lower extremity, none on the left Neuro- alert, oriented x 3; no gross focal neurologic deficits Skin- warm & dry Results & Data Results & Data ([facility]) Vital Signs (Past 12 Hours) Vital Signs Temp Pulse Resp BP Pulse Ox 07/12/21 15:00 36.7 C 83 18 100/62 93 07/12/21 07:41 37 C 93 H 18 111/76 95 all noted and reviewed including below
[2021-07-12] MEDS: DOCUSATE SODIUM/SENNA 50/8.6MG TAB PO SCH (20:15)
[2021-07-12] MEDS: ZOLPIDEM TARTRATE 10 MG TAB PO SCH (22:48)
[2021-07-13] MEDS: ACETAMINOPHEN 500 MG TAB PO SCH ×2 (00:10→08:38)
[2021-07-13] MEDS: POLYETHYLENE (MIRALAX) 17 GM PACK PO SCH ×3 (00:10→12:14)
[2021-07-13] MEDS: SODIUM CHLORIDE 0.9% 1000ML 1,000 ML IV SCH ×2 (00:10→08:36)
[2021-07-13] MEDS: traMADol HCL 50 MG TABLET PO PRN ×3 (02:03→13:48)
[2021-07-13] MEDS: LEVOTHYROXINE SODIUM 200 MCG TABLET PO SCH (06:13)
[2021-07-13 08:33] LABS: Hematocrit (blood only) 33.5 % (42-52); Hemoglobin 10.9 g/dL (14.0-18.0); Mean Corpuscular Hemoglobin 28.3 pg (25-34); Mean Corpuscular Hgb Conc 32.5 g/dL (32-36); Mean Platelet Volume 9.4 fL (7.4-10.4); Platelet Count 174 K/uL (130-400); RDW Coefficient of Variation 13.4 % (11.5-14.5); RDW Standard Deviation 43.1 fL (36.4-46.3); Red Blood Count 3.85 M/uL (4.7-6.1); White Blood Count 8.52 K/uL (4.8-10.8)
[2021-07-13] MEDS: carvediloL 3.125 MG TAB PO SCH (08:36)
[2021-07-13] MEDS: IRBESARTAN 150 MG TAB PO SCH (08:37)
[2021-07-13] MEDS: GABAPENTIN 300 MG CAP PO SCH (08:37)
[2021-07-13 08:53] LABS: Basophils # (auto) 0.01 K/uL (0-0.2); Basophils % (auto) 0.1 %; Eosinophils # (auto) 0.18 K/uL (0-0.5); Eosinophils % (auto) 2.1 %; Immature Granulocytes # (auto) 0.05 K/uL (0.00-0.02); Immature Granulocytes % (auto) 0.6 %; Lymphocytes # (auto) 1.67 K/uL (1.2-3.4); Lymphocytes % (auto) 19.6 %; Monocytes # (auto) 1.35 K/uL (0.11-0.59); Monocytes % (auto) 15.8 %; Neutrophils # (auto) 5.26 K/uL (1.4-6.5); Neutrophils % (auto) 61.8 %
[2021-07-13 09:37] LABS: BUN Creatinine Ratio 18.6 (10-20); Calcium 8.1 mg/dl (8.5-10.1); Creatinine Clr Calc Pharmacy 112.2 ml/min; Est GFR (African American) 109.2 ml/min; Est GFR (Non-African American) 94.3 ml/min; Potassium 4.4 mmol/L (3.5-5.1)
--- NOTE | 2021-07-13 10:23 | Hospitalist Progress Note ---
Date of Service July 13, 2021 Assessment & Plan (1) Lumbar radiculopathy: Plan: per previous service notes with addendum: Planned for surgery in am with Dr. Cancino-no contraindication for proceeding with surgery at this time. No history of issues w anesthesia. Good functional capacity without symptoms. No h/o DVT-standard DVT prophylaxis per ortho spine team recommended. Cont current medications, especially coreg without stopping. Normal EKG. -cont pain control, PT/OT per Ortho team -cont current medications -medicine will cont to follow along throughout his hospital stay. 07/13 Stable overall Hemoglobin stable at 10.9, asymptomatic PRN analgesics PT/OT DVT prophylaxis per Ortho Doppler ultrasound right lower extremity: Negative for DVT DC IV Dilaudid and oxycodone which could explain patient's symptoms--> would not recommend narcotics on discharge, if necessary, given tramadol for severe pain Recommend Tylenol scheduled every 8 hours (2) Hypertension: Plan: chronic, stable. continue Irbesartan, Coreg Resume HCTZ tomorrow (3) Hypothyroidism: Plan: chronic, stable, cont home levothyroxine. (4) DVT prophylaxis: Plan: SCDs/ambulation as tolerated. Full Code Thank you for this consultation. We will follow the patient with you during their hospital stay. You can reach a [facility] via pager @ [phone]. Admission and Anticipated Discharge Date Admission Date: July 08, 2021 Subjective ff up for s/p lumbar decompression, etc seen resting in chair, comfortable states he feels much better today no chest pain, dyspnea, palpitations, dizziness back pain better still has mild R lower leg pain no chills, headache, cough, abdominal pain, nausea/vomiting, problems with BM or urination no other symptoms Review of Systems Review of Systems: all noted and negative except for above Physical Exam Physical Exam: General- oriented x 3, not in distress, speaks in sentences with no effort or accessory muscle use Eyes- anicteric Neck- no JVD Lungs- clear BS bilaterally Heart- normal rate, regular rhythm; no murmurs Abdomen- normal bowel sounds, nondistended, soft, nontender Extremities- no pretibial edema, no calf tenderness Back- dressing in place: No bleeding or discharge REENA drain in place: Scant sanguinous output Neuro- alert, oriented x 3; no gross focal neurologic deficits Skin- warm & dry Results & Data Results & Data ([facility]) Vital Signs (Past 12 Hours) Vital Signs Temp Pulse Resp BP Pulse Ox 07/13/21 07:31 36.6 C 72 16 118/73 97 07/12/21 22:46 37.3 C 81 18 124/72 94 all noted and reviewed including below
--- NOTE | 2021-07-13 13:14 | Discharge Summary ---
Date of Service July 13, 2021 Admission HPI Per Admitting Provider This is a 7-year-old male seen just last week in my office. He presented with severe right-sided lumbar radiculopathy. He does have a previous history of chronic persistent back pain over the past several years with radiation of the bilateral buttocks. He had a marked decline in status over the past several weeks that has become acute over the weekend and symptoms required a visit to the emergency room and was subsequently admitted the patient for pain control and to urgently address his neurologic decline. He notes pain overlying the right buttock posterior thigh extending into the right foot and great toe. Is noted to stand and ambulate any distance. He is undergone a course of oral steroids without any resolution of his pain. He is trialed various narcotics and NSAIDs without improvement. He has been unable to sleep. It has progressed significantly. Left lower extremity is stable and without weakness. Principal Diagnosis Lumbar spinal stenosis with radiculopathy and neuro deficit Discharge Data Allergies Allergy/AdvReac Type Severity Reaction Status Date / Time No Known Allergies Allergy Verified 07/08/21 19:14 Consultations 07/08/21 18:28 ED Decision to Admit Stat 07/08/21 20:18 Consult Internal Medicine Routine Procedures Performed Operation Date: 07/10/21 10:35 Actual Procedures p L3-S1 Decompression Fusion, Spinal Cord Monitoring(Not Applicable) - Tonio Cancino, Ordered Studies 07/10/21 10:35 FL lumbar spine 2-3V Routine 07/12/21 16:39 US venous doppler LE RT Stat Hospital Course (1) Spinal stenosis of lumbar region with radiculopathy: She was admitted with severe back and worsening leg pain with progressive weakness. He underwent decompression fusion following day. He Targis well on postop day 1 is up and ambulating progressive postop day #2 with excellent strength testing. His pain was well controlled. Subsequently he was discharged home on postop day 3. Discharge orders instructions from the chart for further review. Total Time Total Time Spent Total Time Spent (In Minutes): 20 minutes Discharge Plan Discharge Items Patient Disposition: Home - Self-Care Reason For Visit: SPINAL STENOSIS WITH WEAKNESS Discharge Diagnosis: Lumbar spinal stenosis with neurogenic claudication Activity: As commented below Non-emergency contact: Primary Care Provider Call non-emergency contact if: you have any medication questions Follow-up/Referrals: Moreno Irwin MD [Primary Care Provider] - Diet: Regular Addtl Attending Provider Instructions: ACTIVITY RECOMMENDATIONS: SELF CARE INSTRUCTIONS AFTER THORACIC/LUMBAR FUSIONS 1. You may walk to your tolerance. It is good exercise for your legs and back. Expect some back and intermittent leg aches and pains. 2. You may perform "counter-top" level activities (make a sandwich, gladys with a project, etc.). 3. No bending or lifting of more than 10 pounds or back twisting of any nature (roll like a log when turning in bed). 4. You may ride in a car for 20-30 minutes at a time. No driving until after your first visit with your doctor. 5. Frequent changes of position and restricting sitting to 30 minutes at a time will help limit the amount of back spasms and stiffness you may experience. 6. You may discontinue the use of ambulatory aids (cane, crutches, etc.) once your strength and confidence allow. 7. You may over the horizon targeting supervisor the shower and let water strike your incision when you arrive home at least once daily. Do not take a tub bath, sit in a hot tub or go into a swimming pool until after your first recheck in the office. SPECIAL CARE INSTRUCTIONS: VERY IMPORTANT TO READ AND REVIEW A. Your surgical incision has been closed with a cosmetic suture under the skin that will dissolve in about 6 weeks. In 14 days, you can use a pair of clean scissors and cut the suture that is left outside of the skin at the ends of your incision. 1. The small skin tapes can be removed 7 days after surgery if they have not fallen off by that point. 2. You may keep the wound open to air as much as possible to promote healing after post-op day number 5 unless told otherwise by your doctor. 3. If you think the wound looks like it is becoming infected (redness or worsening drainage) and/or you are experiencing fever, chill or worsening back pain and muscle spasms, contact the office so that we may evaluate you as soon as possible. B. Complications are uncommon, but please contact us if you have any signs or symptoms of: 1. wound infection (fever higher than 102.5 degrees F, redness, separation of wound, drainage, or increasing pain from the incision) 2. blood clots in legs (pain, swelling, redness and warmth in legs) 3. urinary tract infection (fever higher than 102.5 degrees F, burning upon urination or increased frequency of urination) 4. nerve problems (inability to walk on your toes or heels, numbness, loss of bowel or bladder control) 5. any other symptoms that concern you C. Please call the office at if you have any concerns or questions about your operation or recovery. D. No smoking! Smoking drastically decreases the chance of a solid fusion. E. Do not take any anti-inflammatory medications (Indocin, Advil, Motrin, Aspirin, Naprosyn, etc.) as these may inhibit the chance of a solid fusion. Tylenol is okay to take for pain. MANAGING PAIN AFTER SPINAL SURGERY 1. Narcotic medication is intended for short-term use and will be provided for surgical pain. Surgical pain usually lasts for a period of 4-6 weeks. Narcotic medication includes Percocet, Vicodin, Darvocet, Tylenol #3 or Lortab. 2. Longer-term pain is more appropriately treated with non-narcotic medication such as Tylenol ES. 3. Muscle spasm is not appropriately treated with narcotics. Muscle relaxers such as Soma, Flexeril or Skelaxin can be used along with Tylenol ES. 4. Remember that we all live with some "aches and pains". This is not unusual or uncommon after an injury or as we get older. a. Back pain is expected and may include muscle spasms for 4 to 6 weeks after surgery. The pain should gradually improve. If the pain worsens for no apparent reason, please contact the office. b. Intermittent leg pain may also be experienced and should not be concerned about unless it worsens for no apparent reason. If so, please contact the office. 5. We will provide appropriate medication within the normal guidelines of their prescribed use. We will also be very cautious and aware of potential abuse and extended duration of patients' medication needs. a. Pain medications are for your comfort and to assist with sleep and rest so that the tissue can heal. They are not provided in order to return to normal activity and should not be used through the day. To do so or worsening pain at night can result from ongoing tissue damage and development of tolerance to the prescribed medicine. 6. Please allow 2-3 days to process refills. Prescriptions will not be mailed but must be picked up at the office. FOLLOW UP VISIT: Keep your scheduled follow-up appointment. Any questions, please call the office at . Pending Studies at Discharge: No Stand-Alone Forms: [facility], Smoking Cessation Medications and DC Order Prescriptions: New tramadol 50 mg tablet 50 mg PO Q6H PRN (Reason: pain, moderate) Qty: 30 RF: 0 oxycodone 5 mg tablet 5 mg PO Q6H PRN (Reason: pain, severe) Qty: 30 RF: 0 Continued carvedilol 3.125 mg tablet 3.125 mg PO BID RF: 0 irbesartan-hydrochlorothiazide 300-12.5 mg tablet 1 tab PO DAILY RF: 0 levothyroxine 200 mcg tablet 200 mcg PO QAM RF: 0 zolpidem 10 mg tablet 10 mg PO HS RF: 0 Repatha SureClick 140 mg/mL pen injector 140 mg SUBCUT MONTHLY RF: 0 hydrocodone-acetaminophen 5-325 mg tablet 1 tab PO Q6 PRN (Reason: Pain) RF: 0 gabapentin 300 mg capsule 300 mg PO BID PRN (Reason: Pain) RF: 0 Discharge Orders: Discharge Order (Routine); Ordered 07/13/21 Ordered By: Tonio Cancino Admission Data Admit Date/Time: 07/08/21 18:43 Attending Provider: Tonio Cancino Admit Provider: Tonio Cancino Primary Care Provider: Moreno Irwin Other Providers: Cem Sarabia ; Tonio Cancino ; Ara Bell
== END 2021-07-13 16:33 | disposition home or self-care (01) | DRG 455 ==
LOC: ED 17:49 → 3E 18:43